=== PATIENT | male | born 1955 | race Caucasian/White ===

== ENCOUNTER → 2017-05-13 09:10 | Outpatient (CLI) | payer MEDICAID, SELFPAY ==
[2017-05-13 13:11] LABS: Hemoglobin A1c 7.3 % (4.2-6.3)
[2017-05-13 13:13] LABS: AST(SGOT) 30 U/L (15-37); Alanine Aminotransfer ALT/SGPT 59 U/L (16-61); Albumin, Serum 3.8 g/dL (3.2-5.0); Alkaline Phosphatase 53 U/L (45-117); Anion Gap 11 (5-15); BUN 17 mg/dL (7-18); BUN/Creat Ratio 20.6 RATIO (10-20); Bilirubin, Direct 0.11 mg/dL (0.00-0.30); Chloride 100 mmol/L (98-107); Cholesterol 162 mg/dL (200); Creatinine, Serum 0.83 mg/dL (0.70-1.30); EST Glomerular Filtration Rate 101 mL/min (>60); Est Glom Filt Rate - Afr Amer 122 mL/min (>60); Globulin 3.1 g/dL (2.2-4.2); Glucose 158 mg/dL (74-106); High Density Lipoprotein 32 mg/dL; Microalbumin,Random Urine 11.9 mg/L (NO RANGE EST.); Microalbumin:Creatinine Ratio 20.5 mg/g CRE (<30 mg/g CRE); Potassium 3.7 mmol/L (3.5-5.1); Protein, Total 6.9 g/dL (6.4-8.2); Sodium Level 137 mmol/L (136-145); Triglycerides 263 mg/dL; Very Low Density Lipoprotein 53 mg/dL (5-40)
== END ==
PROVIDERS: Family Provider Internal Medicine; PCP Internal Medicine; Visit Provider Nurse Practitioner Family
DX: I10 Essential (primary) hypertension (principal); E78.5 Hyperlipidemia, unspecified; E11.9 Type 2 diabetes mellitus without complications
CPT/HCPCS: 36415; 80048; 80061; 80076; 82043; 82570; 83036

== ENCOUNTER → 2017-09-09 09:45 | Outpatient (CLI) | payer MEDICAID, SELFPAY ==
--- NOTE | 2017-09-09 09:45 | DT_ITS ---
This patient was seen during an EMR downtime September 06, 2017 - September 13, 2017. This patient may have a combination of paper and electronic documentation or all paper documentation. All documentation is viewable within the e-chart portion of [facility] for each patient visit.
== END ==
PROVIDERS: Family Provider Internal Medicine; PCP Internal Medicine; Visit Provider Internal Medicine
DX: E11.9 Type 2 diabetes mellitus without complications (principal)
CPT/HCPCS: 83036

== ENCOUNTER → 2017-12-02 08:56 | Outpatient (CLI) | payer MEDICAID, SELFPAY ==
[2017-12-02 10:36] LABS: Hemoglobin A1c 7.1 % (4.2-6.3)
== END ==
PROVIDERS: Family Provider Internal Medicine; PCP Internal Medicine; Visit Provider Internal Medicine
DX: E11.9 Type 2 diabetes mellitus without complications (principal)
CPT/HCPCS: 36415; 83036

== ENCOUNTER → 2017-12-23 10:09 | Outpatient (CLI) | payer MEDICAID, SELFPAY ==
[2017-12-23 12:13] LABS: Anion Gap 10 (5-15); BUN 18 mg/dL (7-18); BUN/Creat Ratio 21.4 RATIO (10-20); Calcium,Total 9.4 mg/dL (8.5-10.1); Chloride 102 mmol/L (98-107); Creatinine, Serum 0.84 mg/dL (0.70-1.30); EST Glomerular Filtration Rate 99 mL/min (>60); Est Glom Filt Rate - Afr Amer 119 mL/min (>60); Glucose 187 mg/dL (74-106); Potassium 3.9 mmol/L (3.5-5.1); Sodium Level 141 mmol/L (136-145)
== END ==
PROVIDERS: Family Provider Internal Medicine; PCP Internal Medicine; Visit Provider Internal Medicine
DX: E11.9 Type 2 diabetes mellitus without complications (principal); I10 Essential (primary) hypertension
CPT/HCPCS: 36415; 80048

== ENCOUNTER 2018-01-03 06:52 | Day surgery (SDC) | payer MEDICAID, SELFPAY ==
[2018-01-03 07:15] VITALS: BP 131/70; PULSE 92; RESP 16; TEMP 36.8; O2SAT 96; BMI 46.3
[2018-01-03 07:31] LABS: Bedside Glucose 156 mg/dL (70-110)
--- NOTE | 2018-01-03 07:54 | HP.PCM_ITS ---
Past Medical/Surgical History - Planned Operation Planned Operative Procedure/s: cscope open access Date of Operative Procedure: 01/03/18 Permit Signed: No S.O.S: No Is This Patient Having a Total Joint: No - Previous Hospitalizations/Surgeries HX Hospitalizations: Yes - pneumonia 10 yrs Any Problems With Anesthesia: No You/Your Family Experience Fever (Hyperthermia) With Anes: No Cholinesterase deficiency: No - Cardiovascular Hx Chest Pain within Last 2 months: No Hx of Irregular Heartbeat and/or Afib: No Hx Heart Attack: No Hx Congestive Heart Failure: No Hx Rheumatic Fever: No Hx Hypertension: Yes - controlled with meds Hx Internal Defibrillator: No Hx Pacemaker: No Hx Cardiac Catheterization: No Hx Cardiac Surgery/Stents/Etc.: No Hx Stress Test: No HX Edema: Yes - compression stockings Hx Pain in Legs when Walking/Leg Cramps: No - Respiratory Chronic Cough: No HX of Shortness of Breath: Yes - sob with 2 flights of stairs Hoarseness: No Hx Chronic Obstructive Pulmonary Disease (COPD): No Hx Asthma: Yes - prn inhaler Hx Emphysema: No Hx Sleep Apnea: Yes CPAP: Yes BIPAP: No Hx Oxygen Use at Home: No Hx Respiratory Tract Infection/Cold (presently): No Result (for STOP score): Positive Hx Smoking: Yes - snuff at times Smoking Status: Current some day smoker - Gastrointestinal Hx Gastroesophageal Reflux: No Hx Gastrointestinal Disorders: No Hx Gastrointestinal Bleed: No Hx Ulcer: No Hx Hiatal Hernia: No Difficulty Chewing/Swallowing: No Recent Onset of Swallowing Problems: No Special diet followed at home: Yes - diabetic Hx Unplanned Weight Loss of 20#: No HX Unplanned Weight Gain of 20#: No - Neurological Hx Seizures: No HX Syncope/Blackout Spells/Unconsciousness: Yes - vertigo in the past d/t virus Hx CVA/Stroke: No Hx Transient Ischemic Attacks (TIA): No Hx Multiple Sclerosis: No Hx Parkinson's Disease: No Hx Head/Neck Injury: No Hx Headaches: No Hx Back Injury/Pain: Yes - back pain at times/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 Recent Onset of Speech Difficulty: No Restless Legs: No Does patient have nerve stimulator: No Patient instructed to have device shut off: No Rep notified?: No - Blood Disorder Hx Leukemia: No Bleeding Tendencies: No Hx Deep Vein Thrombosis: No Hx High Cholesterol: Yes - on med Blood Transmitted Disease: No Hx Hepatitis: No Hx Cirrhosis: No Hx Anemia: No Hx Blood Disorders: No - Genitourinary Hx Renal Disease: No - Musculoskeletal Hx Arthritis: No Hx Rheumatoid Arthritis: No Hx Gout: No Recent Onset of an Orthopedic Problem: No - Endocrine Hx Diabetes: Yes Insulin: No Thyroid Disease: No Hx Steroid Therapy: No - Psycho/Social Hx Substance Use: No Hx Alcohol Use: No Hx Anxiety: No Hx Depression: No Mental Illness: No Hx Dementia: No - Miscellaneous Hx Cancer: No Recent Exposure to Contagious Disease: No Active MRSA: No Hx of C-Diff: No Any Loose Teeth: No Allergies No Known Allergies Allergy (Unverified 12/29/17 15:00) - Discharge Is Pt Admitted From a Correction, or a Penitentiary: No Who Could Help: family After D/C, Where Do you Plan to Go: Return Home - Physical Exam General: Alert, Oriented x3, Cooperative, No apparent distress Lungs: Normal air movement Cardiovascular: Regular rate Abdomen: Soft, Non Tender, Non-Distended, Obese Extremities: No clubbing, No cyanosis, Edema - mild Neurological: Cranial nerves II-XII grossly intact Vital Signs Temp Pulse Resp BP Pulse Ox 98.3 F 92 16 131/70 H 96 01/03/18 07:15 01/03/18 07:15 01/03/18 07:15 01/03/18 07:15 01/03/18 07:15 Oxygen Delivery Method Room Air Weight: 309 lb 8.464 oz Body Mass Index (BMI) 46.3 POC Glucose 01/03/18 07:25 POC Glucose 156 H Assessment/Plan All Active Problems (Last Reviewed 07/26/17 @ 09:21 by Ira Cherry) Erectile dysfunction (Acute) Pneumonia (Acute) Screen colonoscopy, previous colonoscopy 10 years ago negative, denies family history Surgery Risks - Colonoscopy I discussed with the patient the risks of the procedure: Yes Risks Include but are not Limited To: Risks include but are not limited to: Bleeding, perforation requiring further surgery, inability to complete colonoscopy requiring barium enema.
[2018-01-03 08:15] VITALS: BP 124/66; BP 131/70; PULSE 87; RESP 18; O2SAT 93
[2018-01-03 08:18] VITALS: BP 124/66; BP 131/70; PULSE 91; RESP 18; TEMP 36.6; O2SAT 96
[2018-01-03 08:20] VITALS: BP 126/71; BP 131/70; PULSE 87; RESP 18; O2SAT 94
[2018-01-03 08:27] VITALS: BP 121/83; BP 131/70; PULSE 82; RESP 18; TEMP 37; O2SAT 95
--- NOTE | 2018-01-03 08:33 | OP.ENDO_ITS ---
Patient Name: Rj Lopez Procedure Date: 01/03/2018 7:52 AM Date of : 1955 Age: 62 Procedure: Colonoscopy Indications: Screening for colorectal malignant neoplasm Providers: Eboni Garcia MD Medicines: Monitored Anesthesia Care Patient Profile: Last Colonoscopy: 10 years ago. Complications: No immediate complications. Procedure: Pre-Anesthesia Assessment: - Prior to the procedure, a History and Physical was performed, and patient medications and allergies were reviewed. The patient's tolerance of previous anesthesia was also reviewed. The risks and benefits of the procedure and the sedation options and risks were discussed with the patient. All questions were answered, and informed consent was obtained. Prior Anticoagulants: The patient has taken no previous anticoagulant or antiplatelet agents. ASA Grade Assessment: III - A patient with severe systemic disease. After reviewing the risks and benefits, the patient was deemed in satisfactory condition to undergo the procedure. After I obtained informed consent, the scope was passed under direct vision. Throughout the procedure, the patient's blood pressure, pulse, and oxygen saturations were monitored continuously. The colonoscope was introduced through the anus and advanced to the cecum, identified by the appendiceal orifice, ileocecal valve and palpation. The colonoscopy was performed with ease. The patient tolerated the procedure well. The quality of the bowel preparation was good. Scope In: 8:00:46 AM Scope Withdrawal Time 0 hours 7 minutes 5 seconds Scope Out: 8:11:42 AM Total Procedure Duration Time 0 hours 10 minutes 56 seconds Findings: The entire examined colon appeared normal on direct and retroflexion views. Impression: - The entire examined colon is normal on direct and retroflexion views. - No specimens collected. Recommendation: - Discharge patient to home. - Continue present medications. - Repeat colonoscopy in 10 years for screening purposes. Procedure Code(s): --- Professional --- G0121, Colorectal cancer screening; colonoscopy on individual not meeting criteria for high risk Diagnosis Code(s): --- Professional --- Z12.11, Encounter for screening for malignant neoplasm of colon CPT copyright 2017 [employer]. All rights reserved. The codes documented in this report are preliminary and upon inpatient coder review may be revised to meet current compliance requirements. MD Eboni Diana MD 01/03/2018 8:32:35 AM This report has been signed electronically. Number of Addenda: 0 Note Initiated On: 01/03/2018 7:52 AM
[2018-01-03 08:48] VITALS: BP 131/70
== END 2018-01-03 09:09 | disposition home or self-care (01) ==
LOC: EN 06:53 → AC 06:54
PROVIDERS: Family Provider Internal Medicine; PCP Internal Medicine; Visit Provider Surgery
PROC: 0DJD8ZZ Inspection of Lower Intestinal Tract, Via Natural or Artificial Opening Endoscopic (ICD-10-PCS; CPT 45378; principal; 2018-01-03 07:55)
DX: Z12.11 Encounter for screening for malignant neoplasm of colon (principal); E11.9 Type 2 diabetes mellitus without complications; I10 Essential (primary) hypertension; E78.00 Pure hypercholesterolemia, unspecified; N52.9 Male erectile dysfunction, unspecified; J45.909 Unspecified asthma, uncomplicated; G47.30 Sleep apnea, unspecified; Z79.84 Long term (current) use of oral hypoglycemic drugs; Z79.899 Other long term (current) drug therapy; F17.200 Nicotine dependence, unspecified, uncomplicated; Z87.01 Personal history of pneumonia (recurrent)
CPT/HCPCS: 45378; 82962; J7120

== ENCOUNTER → 2018-03-18 10:13 | Outpatient (CLI) | payer MEDICAID, SELFPAY ==
[2018-03-18 14:09] LABS: Hemoglobin A1c 7.7 % (4.2-6.3)
[2018-03-18 14:22] LABS: ALB/GLOB Ratio 1.2 RATIO (0.9-2.4); AST(SGOT) 33 U/L (15-37); Alanine Aminotransfer ALT/SGPT 59 U/L (16-61); Albumin, Serum 3.7 g/dL (3.2-5.0); Alkaline Phosphatase 44 U/L (45-117); Anion Gap 11 (5-15); BUN 18 mg/dL (7-18); Calcium,Total 9.1 mg/dL (8.5-10.1); Chloride 102 mmol/L (98-107); Cholesterol 146 mg/dL (200); EST Glomerular Filtration Rate 92 mL/min (>60); Est Glom Filt Rate - Afr Amer 111 mL/min (>60); Globulin 3.2 g/dL (2.2-4.2); Glucose 139 mg/dL (74-106); High Density Lipoprotein 33 mg/dL; PSA,Total - Annual Screen 0.51 ng/mL (0.00-4.00); Protein, Total 6.9 g/dL (6.4-8.2); Sodium Level 139 mmol/L (136-145); Triglycerides 246 mg/dL; Very Low Density Lipoprotein 49 mg/dL (5-40)
--- OUTSIDE RECORDS SUMMARY | 2018-05-04 01:07 | XMS RPT_ITS ---
:1955 Author Organization OHIP Support Name Relationship Address Phone S Unavailable Unavailable Unavailable ZI MendesN Unavailable [address] + [place] [address] S Unavailable Unavailable Unavailable S Unavailable Unavailable Unavailable KAMINSKI, PARAMJIT Unavailable [address] + [place] [address] S Unavailable Unavailable Unavailable KAMINSKI, PARAMJIT Unavailable [address] + [place] [address] S Unavailable Unavailable Unavailable KAMINSKI, PARAMJIT Unavailable [address] + [place] [address] S Unavailable Unavailable Unavailable KAMINSKI, PARAMJIT Unavailable [address] + [place] [address] S Unavailable Unavailable Unavailable KAMINSKI, PARAMJIT Unavailable [address] + [place] [address] S Unavailable Unavailable Unavailable KAMINSKI, PARAMJIT Unavailable [address] + [place] [address] S Unavailable Unavailable Unavailable KAMINSKI, PARAMJIT Unavailable [address] + [place] [address] S Unavailable Unavailable Unavailable KAMINSKI, PARAMJIT Unavailable [address] + [place] [address] S Unavailable Unavailable Unavailable KAMINSKI, PARAMJIT Unavailable [address] + [place] [address] S Unavailable Unavailable Unavailable KAMINSKI, PARAMJIT Unavailable [address] + [place] [address] S Unavailable Unavailable Unavailable KAMINSKI, PARAMJIT Unavailable [address] + [place] [address] S Unavailable Unavailable Unavailable KAMINSKI, PARAMJIT Unavailable [address] + [place] [address] S Unavailable Unavailable Unavailable KAMINSKI, PARAMJIT Unavailable [address] [facility] + [place] [id number] Care Team Providers Name Role Phone Oleghe, Efewongbe Attending Unavailable Oleghe, Efewongbe Referring Unavailable Ira Cherry Attending Unavailable Owen Gutierrez EARLY CHILDHOOD LEAD TEACHER-C Attending Unavailable GutierrezOwen fitch EARLY CHILDHOOD LEAD TEACHER-C Referring Unavailable Oleghe, Efewongbe Primary Care Unavailable Ira Cherry Attending Unavailable Oleghe, Efewongbe Attending Unavailable Oleghe, Efewongbe Referring Unavailable Oleghe, Efewongbe Attending Unavailable Oleghe, Efewongbe Referring Unavailable Oleghe, Efewongbe Primary Care Unavailable Oleghe, Efewongbe Attending Unavailable Oleghe, Efewongbe Referring Unavailable Oleghe, Efewongbe Primary Care Unavailable Oleghe, Efewongbe Attending Unavailable Oleghe, Efewongbe Referring Unavailable Oleghe, Efewongbe Primary Care Unavailable Oleghe, Efewongbe Attending Unavailable Oleghe, Efewongbe Referring Unavailable Oleghe, Efewongbe Primary Care Unavailable Oleghe, Efewongbe Attending Unavailable Oleghe, Efewongbe Referring Unavailable Oleghe, Efewongbe Primary Care Unavailable Nurse, Standard Attending Unavailable Oleghe, Efewongbe Referring Unavailable Oleghe, Efewongbe Attending Unavailable Oleghe, Efewongbe Referring Unavailable Oleghe, Efewongbe Primary Care Unavailable Robotham, Eboni Attending Unavailable Robotham, Eboni Referring Unavailable Oleghe, Efewongbe Primary Care Unavailable Oleghe, Efewongbe Attending Unavailable Oleghe, Efewongbe Primary Care Unavailable Oleghe, Efewongbe Referring Unavailable Robotham, Eboni Attending Unavailable Robotham, Eboni Referring Unavailable Oleghe, Efewongbe Primary Care Unavailable Robotham, Eboni Consulting Unavailable PROBLEMS PROBLEMS DATE TYPE CONDITION / CODE ATTENDING STATUS SOURCE 03/21/2018 Unknown E11.9 - Type 2 Oleghe, Active [place] diabetes mellitus [facility] without Hospital complications / Repository E11.9(ICD-10) 03/21/2018 Unknown E78.5 - Oleghe, Active [place] Hyperlipidemia, [facility] unspecified / Hospital E78.5(ICD-10) Repository 12/23/2017 Unknown I10 - Essential Oleghe, Active [place] (primary) [facility] hypertension / Hospital I10(ICD-10) Repository 12/02/2017 Unknown Z00.00 - Encounter Olemono, Active [place] for general adult [facility] medical examination Hospital without abnormal Repository findings / Z00.00(ICD-10) 12/02/2017 Unknown Z12.11 - Encounter Olemono, Active [place] for screening for [facility] malignant neoplasm Hospital of colon / Repository Z12.11(ICD-10) 07/26/2017 Unknown I87.2 - Venous Oleghe, Active [place] insufficiency [facility] (chronic) [facility] (peripheral) / Repository I87.2(ICD-10) PROCEDURES PROCEDURES No Procedure Records FoundRESULTS RESULTS INTERNAL MEDICINE Observed: 03/25/2018 Status: F Source: [place] OFFICE VISIT 8:37 AM [facility] [place] REPOSITORY [facility] [address] [place] [address] [place] [address] OFFICE VISIT Date of Service: 03/21/18 MR#: [id number] Acct: [id number] Name: CASIE KAMINSKI Rep #: [id number] : 1955 Provider: Monica Johnson MD Age/Sex: 62/M Location: [facility] Status: Signed Intake Vital Signs03/21/18 Height 5 ft 8.5 in Intake Visit Reasons: 3 MO FU Chief Complaint: follow-up visit Is patient in pain?: No Allergies No Known Allergies Allergy (Unverified 12/29/17 15:00) Medications juice plus fiber 6 cap PO DAILY 04/15/17 [History Confirmed 01/03/18] fluticasone 110 mcg/actuation HFA aerosol inhaler 2 inh INHALATION BID #10.6 g 11/10/17 [Rx Confirmed 01/03/18] lisinopril 40 mg tablet 40 mg PO QDAY #90 tab 12/02/17 [Rx Confirmed 01/03/18] Dulaglutide [Trulicity] 1.5 mg SUBCUT CARRERA 12/29/17 [History Confirmed 01/03/18] Metformin HCl [Metformin HCl ER] 1,000 mg PO BID 12/29/17 [History Confirmed 01/03/18] [place]-3 Fatty Acids/Fish Oil [Fish Oil 1,000 mg Capsule] 1 ea PO DAILY 12/29/17 [History Confirmed 01/03/18] amlodipine 10 mg tablet 10 mg PO QDAY #30 tab 01/24/18 [Rx] nebivolol 5 mg tablet 5 mg PO QDAY #30 tab 01/28/18 [Rx] albuterol sulfate HFA 90 mcg/actuation aerosol inhaler 2 puff INHALATION Q8H PRN #8.5 g 02/09/18 [Rx] hydrochlorothiazide 25 mg tablet 25 mg PO QDAY #90 tab 03/21/18 [Rx Confirmed 03/21/18] icosapent ethyl 1 gram capsule 2 g PO BID #180 cap 03/21/18 [Rx Confirmed 03/21/18] rosuvastatin 20 mg tablet 20 mg PO DAILY #90 tab 03/21/18 [Rx Confirmed 03/21/18] PFSH Medical History Sleep apnea (Chronic) Pneumonia (Acute) Hypertension (Chronic) Hyperlipemia (Chronic) Asthma (Chronic) Family History Father Diabetes Mother Diabetes COPD (chronic obstructive pulmonary disease) Social History Smoking Status: Current some day smoker alcohol intake: never substance use type: does not use what type of physical activity do you participate in: none HPI HPI Chief Complaint: follow-up visit Details: CASIE KAMINSKI, is a 62 M who presents to the office today for follow up of his chronic medical conditions. He has no acute complaints at this time. Most recent A1C up from 7.1 to 7.7. He reports compliance with his medications however, admits to difficulty with his diet especially around the holiday season. There has also been some weight gain noted since his last visit. ROS Const Constitutional: No weight change, body ache, chills, fatigue, sleep problems, fever(s), change in appetite, snoring, weakness, frequent falls, headache(s) or excessive sweating Eyes Eyes: No change in vision, eye pain, light sensitivity or blurry vision ENT ENT: Positive for dry mouth (at night ); no headache(s), abnormal hearing, ear pain, tinnitus, nasal congestion, sore throat or neck pain Resp Respiratory: No snoring, cough, shortness of breath or wheezing Cardio Cardiology: No excessive sweating, chest pain at rest, chest pain with exertion, shortness of breath, dyspnea on exertion, palpitations, orthopnea or lightheadedness Gastro GI: No abdominal pain, change in bowel habits, constipation, diarrhea, vomiting, nausea/dyspepsia or cramping Genitourinary Male: No painful urination, urinary incontinence, urinary frequency, urinary urgency, blood in urine, testicle pain or other Musc Musculoskeletal: No neck pain, abnormal walking, joint pain, back pain, limited range of motion, numbness or tingling Skin Skin: No redness, dry skin, itching, lesions, wounds or rash Neuro Neurology: No weakness, frequent falls, headache(s), abnormal hearing, abnormal walking, numbness, tingling, abnormal speech or memory loss Psych Psychiatric: No change in appetite, No memory loss, No anxiety, No depression, No Thoughts of harming yourself/Others Endo Endocrine: No fatigue, excessive sweating, cold intolerance, increased thirst/drinking, heat intolerance, flushing or increased hunger Aller/Imm Allergy/Immunologic: No wheezing, itchy eyes, hives or seasonal allergy symptoms Jorge Luis/Lymp Hematologic/Lymphatic: No easy bleeding, easy bruising or enlarged lymph nodes Exam Const General: cooperative, no acute distress Orientation: alert, awake, oriented x3 [facility] Head: atraumatic, normocephalic Ears: hearing grossly normal bilaterally Resp Effort AND Inspection: normal respiratory effort, able to speak in complete sentences Auscultation: Bilateral: Clear to Auscultation Cardio Rate: regular rate Rhythm: regular rhythm Heart Sounds: S1 normal, S2 normal GI Palpation: soft, no hepatosplenomegaly Neuro General: alert, awake, oriented x3, moves all extremities, CN's II-XI intact bilaterally Extrem General: pedal edema bilaterally Location: of the leg Severity: 1+ Psych Appearance: grossly normal Mental Status: mental status grossly normal Affect: normal affect Assessment AND Plan 1. Type 2 diabetes mellitus E11.9 Plan Not optimally controlled. Weight gain also noted. He admits to poor dietary choices, largely due to nature of his job. Will refer to the [facility] program. Continue current medication and life style / dietary modifications. Follow up with blood sugar log at next visit. Orders Orders: Referrals: 2. Hypertension I10 Plan Stable. Continue current medication and life style/ dietary modifications. 3. Hyperlipemia E78.5 Plan LDL at goal however HDL is suboptimal. Triglycerides also not at goal. Switch to Crestor and add Vascepa. Life style/ dietary modifications as above. Orders Orders: Referrals: 4. Health care maintenance Z00.00 Plan Recent colonoscopy within normal. 10 year follow up recommended. PSA also within normal. Has received his flu shot. Referral to the [facility] weight program for obesity as above. Plan Detail Other Medications New: icosapent ethyl (Vascepa) administer with food2 grams (2 x 1 gram) PO BID 180 caps 3RF ; swallow whole; do not crush/chew/dissolve/break /cut Refilled: Discontinued: Coding Level of Care Code Off vis,est,level 4 Diagnoses Type 2 diabetes mellitus E11.9 Hypertension I10 Hyperlipemia E78.5 Health care maintenance Z00.00 03/25/18 0837 <Electronically signed by Monica Johnson MD> Date Monica Johnson MD Cosigner Signature: Date (if applicable) CC: HEMOGLOBIN A1C Collected: 03/18/2018 Status: F Source: [place] 10:21 AM [facility] REPOSITORY TYPE CODE TESTS RESULT OUT OF RANGE REFERENCE UNITS LAB L501.9985 4.2-6.3 % High HGB A1C 7.7 Performed By: #### L501.9985 #### [facility] [address] [place], [place], [address] COMPREHENSIVE METABOLIC Collected: 03/18/2018 Status: F Source: [place] [facility] 10:21 AM [facility] REPOSITORY TYPE CODE TESTS RESULT OUT OF RANGE REFERENCE UNITS LAB L501.0100 74-106 mg/dL High GLU 139 Result Comment: Fasting Glucose result greater than or equal to 126 mg/dL suggests DIABETES MELLITUS per A.D.A. criteria. Please note revised GLUCOSE reference range effective 2017. LAB L501.1000 7-18 mg/dL Normal BUN 18 LAB L501.1100 0.70-1.30 mg/dL Normal CREAT,SERUM 0.90 Result Comment: The validity of the calculated GFR AND GFRAA in patients over 70 years has not been determined. Clinical correlation is essential. LAB L501.1110 >60 mL/min Normal EST GFR 92 Result Comment: Non- GFR Calc LAB L501.1115 >60 mL/min Normal EST GFR - AA 111 Result Comment: GFR Calc LAB L501.1300 10-20 RATIO Normal BUN/CRE 20.0 LAB L501.1500 6.4-8.2 g/dL T Normal PROT 6.9 LAB L501.1800 3.2-5.0 g/dL Normal ALB 3.7 LAB L501.1950 2.2-4.2 g/dL Normal GLOB 3.2 LAB L501.2000 0.9-2.4 RATIO Normal A/G 1.2 LAB L501.2200 8.5-10.1 mg/dL CA Normal 9.1 LAB L501.4100 15-37 U/L Normal AST 33 LAB L501.4305 45-117 U/L Low ALK P 44 LAB L501.4405 16-61 U/L Normal ALT 59 LAB L501.4600 0.20-1.00 mg/dL T Normal BILI 0.60 LAB L501.5300 136-145 mmol/L NA Normal 139 LAB L501.5600 3.5-5.1 mmol/L K Normal 4.0 LAB L501.5900 98-107 mmol/L CL Normal 102 LAB L501.6100 21.0-32.0 mmol/L Normal CO2 26.0 LAB L501.6200 5-15 Normal GAP 11 Performed By: #### L500.4050, L500.4100, L501.9910 #### [facility] [address] [place], [address] LIPID PROFILE Collected: 03/18/2018 Status: F Source: [place] 10:21 AM [facility] REPOSITORY TYPE CODE TESTS RESULT OUT OF RANGE REFERENCE UNITS LAB L501.4900 200 mg/dL Normal CHOL 146 Result Comment: <200 mg/dL Desirable 200-240 mg/dL Borderline >240 mg/dL High Risk LAB L501.5000 mg/dL High TRIG 246 Result Comment: The drugs N-Acetylcysteine and Metamizole may falsely depress this assay. Serum Triglycerides Reference Interval Normal <150 mg/dL Borderline high 150 - 199 mg/dL High 200 - 499 mg/dL Very High > or = 500 mg/dL LAB L501.6400 mg/dL Low HDL 33 Result Comment: The drugs N-Acetylcysteine and Metamizole may falsely depress this assay. Reference Range HDL <40 mg/dL Low HDL Cholesterol HDL >or= 60 mg/dL High HDL Cholesterol LAB L501.6500 0-130 mg/dL Normal LDL 64 LAB L501.6600 5-40 mg/dL High VLDL 49 Performed By: #### L500.4050, L500.4100, L501.9910 #### [facility] [address] [place], [address] PSA,TOTAL - ANNUAL Collected: 03/18/2018 Status: F Source: [place] SCREEN 10:21 AM [facility] REPOSITORY TYPE CODE TESTS RESULT OUT OF RANGE REFERENCE UNITS LAB L501.9910 0.00-4.00 ng/mL Normal PSA,TOT 0.51 SCREEN Result Comment: This test was performed using the TPSA assay method for the [employer] chemistry system. Values obtained with different assay methods cannot be used interchangably. When changing PSA assays in the course of monitoring a patient, additional sequential testing should be carried out to confirm baseline values. Performed By: #### L500.4050, L500.4100, L501.9910 #### [facility] [address] [place], [address] OPERATIVE REPORT - Observed: 01/03/2018 Status: F Source: [place] ENDOSCOPY 8:33 AM [facility] REPOSITORY [facility] Medical Records Department [address] [place] [address] Operative Report - Endoscopy MR#: [id number] Acct: [id number] Name: CASIE KAMINSKI Hunter Rep #: [id number] : 1955 62 From: Eboni Garcia MD PCP: Monica Johnson MD [place] [facility] [place] Patient Name: Casie Kaminski Procedure Date: 01/03/2018 7:52 AM Date of : 1955 Age: 62 Procedure: Colonoscopy Indications: Screening for colorectal malignant neoplasm Providers: Eboni Garcia MD Medicines: Monitored Anesthesia Care Patient Profile: Last Colonoscopy: 10 years ago. Complications: No immediate complications. Procedure: Pre-Anesthesia Assessment: - Prior to the procedure, a History and Physical was performed, and patient medications and allergies were reviewed. The patient's tolerance of previous anesthesia was also reviewed. The risks and benefits of the procedure and the sedation options and risks were discussed with the patient. All questions were answered, and informed consent was obtained. Prior Anticoagulants: The patient has taken no previous anticoagulant or antiplatelet agents. ASA Grade Assessment: III - A patient with severe systemic disease. After reviewing the risks and benefits, the patient was deemed in satisfactory condition to undergo the procedure. After I obtained informed consent, the scope was passed under direct vision. Throughout the procedure, the patient's blood pressure, pulse, and oxygen saturations were monitored continuously. The colonoscope was introduced through the anus and advanced to the cecum, identified by the appendiceal orifice, ileocecal valve and palpation. The colonoscopy was performed with ease. The patient tolerated the procedure well. The quality of the bowel preparation was good. Scope In: 8:00:46 AM Scope Withdrawal Time 0 hours 7 minutes 5 seconds Scope Out: 8:11:42 AM Total Procedure Duration Time 0 hours 10 minutes 56 seconds Findings: The entire examined colon appeared normal on direct and retroflexion views. Impression: - The entire examined colon is normal on direct and retroflexion views. - No specimens collected. Recommendation: - Discharge patient to home. - Continue present medications. - Repeat colonoscopy in 10 years for screening purposes. Procedure Code(s): --- Professional --- G0121, Colorectal cancer screening; colonoscopy on individual not meeting criteria for high risk Diagnosis Code(s): --- Professional --- Z12.11, Encounter for screening for malignant neoplasm of colon CPT copyright 2017 [employer]. All rights reserved. The codes documented in this report are preliminary and upon solar sales representative and assessor review may be revised to meet current compliance requirements. MD Eboni Diana MD 01/03/2018 8:32:35 AM This report has been signed electronically. Number of Addenda: 0 Note Initiated On: 01/03/2018 7:52 AM 01/03/18 0832 Date Eboni Garcia MD Cosigner Signature: Date (if indicated) CC: Monica Johnson MD; Eboni Garcia MD Date Dictated: 01/03/18751 Date Transcribed: Food Vendor: TR Signed HISTORY AND PHYSICAL Observed: 01/03/2018 Status: F Source: [place] EXAM 7:54 AM [facility] REPOSITORY [facility] Medical Records Department [address] [place] [address] History and Physical 01/03/18751 MR#: [id number] Acct: [id number] Name: CASIE KAMINSKI Rep #: [id number] : 1955 62 From: Eboni Garcia MD PCP: Monica Johnson MD [place] [facility] [place] Location: [place] [address] Past Medical/Surgical History - Planned Operation Planned Operative Procedure/s: cscope open access Date of Operative Procedure: 01/03/18 Permit Signed: No S.O.S: No Is This Patient Having a Total Joint: No - Previous Hospitalizations/Surgeries HX Hospitalizations: Yes - pneumonia 10 yrs Any Problems With Anesthesia: No You/Your Family Experience Fever (Hyperthermia) With Anes: No Cholinesterase deficiency: No - Cardiovascular Hx Chest Pain within Last 2 months: No Hx of Irregular Heartbeat and/or Afib: No Hx Heart Attack: No Hx Congestive Heart Failure: No Hx Rheumatic Fever: No Hx Hypertension: Yes - controlled with meds Hx Internal Defibrillator: No Hx Pacemaker: No Hx Cardiac Catheterization: No Hx Cardiac Surgery/Stents/Etc.: No Hx Stress Test: No HX Edema: Yes - compression stockings Hx Pain in Legs when Walking/Leg Cramps: No - Respiratory Chronic Cough: No HX of Shortness of Breath: Yes - sob with 2 flights of stairs Hoarseness: No Hx Chronic Obstructive Pulmonary Disease (COPD): No Hx Asthma: Yes - prn inhaler Hx Emphysema: No Hx Sleep Apnea: Yes CPAP: Yes BIPAP: No Hx Oxygen Use at Home: No Hx Respiratory Tract Infection/Cold (presently): No Result (for STOP score): Positive Hx Smoking: Yes - snuff at times Smoking Status: Current some day smoker - Gastrointestinal Hx Gastroesophageal Reflux: No Hx Gastrointestinal Disorders: No Hx Gastrointestinal Bleed: No Hx Ulcer: No Hx Hiatal Hernia: No Difficulty Chewing/Swallowing: No Recent Onset of Swallowing Problems: No Special diet followed at home: Yes - diabetic Hx Unplanned Weight Loss of 20#: No HX Unplanned Weight Gain of 20#: No - Neurological Hx Seizures: No HX Syncope/Blackout Spells/Unconsciousness: Yes - vertigo in the past d/t virus Hx CVA/Stroke: No Hx Transient Ischemic Attacks (TIA): No Hx Multiple Sclerosis: No Hx Parkinson's Disease: No Hx Head/Neck Injury: No Hx Headaches: No Hx Back Injury/Pain: Yes - back pain at times/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 Recent Onset of Speech Difficulty: No Restless Legs: No Does patient have nerve stimulator: No Patient instructed to have device shut off: No Rep notified?: No - Blood Disorder Hx Leukemia: No Bleeding Tendencies: No Hx Deep Vein Thrombosis: No Hx High Cholesterol: Yes - on med Blood Transmitted Disease: No Hx Hepatitis: No Hx Cirrhosis: No Hx Anemia: No Hx Blood Disorders: No - Genitourinary Hx Renal Disease: No - Musculoskeletal Hx Arthritis: No Hx Rheumatoid Arthritis: No Hx Gout: No Recent Onset of an Orthopedic Problem: No - Endocrine Hx Diabetes: Yes Insulin: No Thyroid Disease: No Hx Steroid Therapy: No - Psycho/Social Hx Substance Use: No Hx Alcohol Use: No Hx Anxiety: No Hx Depression: No Mental Illness: No Hx Dementia: No - Miscellaneous Hx Cancer: No Recent Exposure to Contagious Disease: No Active MRSA: No Hx of C-Diff: No Any Loose Teeth: No Allergies No Known Allergies Allergy (Unverified 12/29/17 15:00) - Discharge Is Pt Admitted From a Senior Care, or a Senior Care: No Who Could Help: family After D/C, Where Do you Plan to Go: Return Home - Physical Exam General: Alert, Oriented x3, Cooperative, No apparent distress Lungs: Normal air movement Cardiovascular: Regular rate Abdomen: Soft, Non Tender, Non-Distended, Obese Extremities: No clubbing, No cyanosis, Edema - mild Neurological: Cranial nerves II-XII grossly intact Vital Signs Temp Pulse Resp BP Pulse Ox 98.3 F 92 16 131/70 H 96 01/03/18 07:15 01/03/18 07:15 01/03/18 07:15 01/03/18 07:15 01/03/18 07:15 Oxygen Delivery Method Room Air Weight: 309 lb 8.464 oz Body Mass Index (BMI) 46.3 POC Glucose POC Glucose 156 H Assessment/Plan All Active Problems (Last Reviewed 07/26/17 @ 09:21 by Ira Cherry) Erectile dysfunction (Acute) Pneumonia (Acute) Screen colonoscopy, previous colonoscopy 10 years ago negative, denies family history Surgery Risks - Colonoscopy I discussed with the patient the risks of the procedure: Yes Risks Include but are not Limited To: Risks include but are not limited to: Bleeding, perforation requiring further surgery, inability to complete colonoscopy requiring barium enema. 01/03/18 0754 <Electronically signed by Eboni Garcia MD> Date Eboni Garcia MD Cosigner Signature: Date (if applicable) CC: Monica Johnson MD; Eboni Garcia MD Signed BEDSIDE GLUCOSE Collected: 01/03/2018 Status: F Source: [place] 7:25 AM [facility] REPOSITORY TYPE CODE TESTS RESULT OUT OF REFERENCE UNITS RANGE LAB L501.080 70-110 mg/dL High BEDSIDE GLU 156 Result Comment: MANAGEMENT OF PATIENT CARE PER NURSING PROTOCOL Performed By: #### L501.080 #### [place] [facility] Point of Care [address] [place], [place] [address] [place] [id number] BASIC METABOLIC Collected: 12/23/2017 Status: F Source: [place] PROFILE (BMP) 10:12 AM [facility] REPOSITORY TYPE CODE TESTS RESULT OUT OF RANGE REFERENCE UNITS LAB L501.0100 74-106 mg/dL High GLU 187 Result Comment: Fasting Glucose result greater than or equal to 126 mg/dL suggests DIABETES MELLITUS per A.D.A. criteria. Please note revised GLUCOSE reference range effective 2017. LAB L501.1000 7-18 mg/dL Normal BUN 18 LAB L501.1100 0.70-1.30 mg/dL Normal CREAT,SERUM 0.84 Result Comment: The validity of the calculated GFR AND GFRAA in patients over 70 years has not been determined. Clinical correlation is essential. LAB L501.1110 >60 mL/min Normal EST GFR 99 Result Comment: Non- GFR Calc LAB L501.1115 >60 mL/min Normal EST GFR - AA 119 Result Comment: GFR Calc LAB L501.1300 10-20 RATIO High BUN/CRE 21.4 LAB L501.2200 8.5-10.1 mg/dL CA Normal 9.4 LAB L501.5300 136-145 mmol/L NA Normal 141 LAB L501.5600 3.5-5.1 mmol/L K Normal 3.9 LAB L501.5900 98-107 mmol/L CL Normal 102 LAB L501.6100 21.0-32.0 mmol/L Normal CO2 29.0 LAB L501.6200 5-15 Normal GAP 10 Performed By: #### L500.2500 #### [facility] [address] [place], [place], [address] INTERNAL MEDICINE Observed: 12/07/2017 Status: F Source: [place] OFFICE VISIT 3:37 PM [facility] REPOSITORY [facility] [address] [place] [address] [place] [address] OFFICE VISIT Date of Service: 12/02/17 MR#: [id number] Acct: [id number] Name: CASIE KAMINSKI Rep #: [id number] : 1955 Provider: Monica Johnson MD Age/Sex: 62/M Location: [facility] Status: Signed Intake Vital Signs12/02/17 Height 5 ft 9 in Intake Visit Reasons: 1 mo fu Chief Complaint: follow-up visit Is patient in pain?: No Allergies No Known Allergies Allergy (Unverified 04/15/17 09:38) Medications hydrochlorothiazide 25 mg tablet 25 mg PO QDAY #90 tab 04/15/17 [Rx Confirmed 04/15/17] juice plus fiber PO 04/15/17 [History Confirmed 04/15/17] medical compression stockings MISCELLANEOUS 04/15/17 [History Confirmed 04/15/17] omega-3 fatty acids-fish oil 300 mg-1,000 mg capsule 1 cap PO BID 04/15/17 [History Confirmed 04/15/17] pravastatin 20 mg tablet 20 mg PO QHS 04/15/17 [History Confirmed 04/15/17] dulaglutide 1.5 mg/0.5 mL subcutaneous pen injector 1.5 mg SC QWEEK #2 ml 05/14/17 [Rx] Compression Stockings (15 - 20 mmHg ) #4 ea 07/26/17 [Rx Confirmed 07/26/17] albuterol sulfate HFA 90 mcg/actuation aerosol inhaler 2 puff INHALATION Q8H PRN #8.5 g 09/02/17 [Rx] amlodipine 10 mg tablet 10 mg PO QDAY #30 tab 09/15/17 [Rx] nebivolol 5 mg tablet 5 mg PO QDAY #30 tab 09/20/17 [Rx] fluticasone 110 mcg/actuation HFA aerosol inhaler 2 inh INHALATION BID #10.6 g 11/10/17 [Rx] lisinopril 40 mg tablet 40 mg PO QDAY #90 tab 12/02/17 [Rx Confirmed 12/02/17] metformin 1,000 mg tablet 1,000 mg PO BID #180 tab 12/02/17 [Rx Confirmed 12/02/17] PFSH Medical History Sleep apnea (Chronic) Pneumonia (Acute) Hypertension (Chronic) Hyperlipemia (Chronic) Asthma (Chronic) Family History Father Diabetes Mother Diabetes COPD (chronic obstructive pulmonary disease) Social History Smoking Status: Never smoker alcohol intake: never substance use type: does not use what type of physical activity do you participate in: none HPI HPI Chief Complaint: follow-up visit Details: CASIE KAMINSKI, is a 62yo M who presents to the office today for follow-up of his chronic medical conditions. He has no acute complaints at this time. He reports compliance with his medications. He is now due for colonoscopy. ROS Const Constitutional: No weight change, body ache, chills, fatigue, sleep problems, fever(s), change in appetite, snoring, weakness, frequent falls, headache(s) or excessive sweating Eyes Eyes: No change in vision, eye pain, light sensitivity or blurry vision ENT ENT: No headache(s), abnormal hearing, ear pain, tinnitus, nasal congestion, sore throat or neck pain Resp Respiratory: No snoring, cough or wheezing Cardio Cardiology: No excessive sweating, chest pain at rest, chest pain with exertion, shortness of breath, dyspnea on exertion, palpitations, orthopnea or lightheadedness Gastro GI: No abdominal pain, change in bowel habits, constipation, diarrhea, vomiting, nausea/dyspepsia or cramping Genitourinary Male: No painful urination, urinary incontinence, urinary frequency, urinary urgency, blood in urine, testicle pain or other Musc Musculoskeletal: No neck pain, abnormal walking, joint pain, back pain, limited range of motion, numbness or tingling Skin Skin: No redness, dry skin, itching, lesions, wounds or rash Neuro Neurology: No weakness, frequent falls, headache(s), abnormal hearing, abnormal walking, numbness, tingling, abnormal speech, dizziness or memory loss Psych Psychiatric: No change in appetite, No memory loss, No anxiety, No depression, No Thoughts of harming yourself/Others Endo Endocrine: No fatigue, excessive sweating, cold intolerance, increased thirst/drinking, heat intolerance, flushing or increased hunger Aller/Imm Allergy/Immunologic: No wheezing, itchy eyes, hives or seasonal allergy symptoms Jorge Luis/Lymp Hematologic/Lymphatic: No easy bleeding, easy bruising or enlarged lymph nodes Exam Const General: cooperative, no acute distress Orientation: alert, awake, oriented x3 HENMT Head: atraumatic, normocephalic Ears: hearing grossly normal bilaterally Resp Effort AND Inspection: normal respiratory effort, able to speak in complete sentences Auscultation: Bilateral: Clear to Auscultation Cardio Rate: regular rate Rhythm: regular rhythm Heart Sounds: S1 normal, S2 normal GI Palpation: soft, no hepatosplenomegaly Neuro General: alert, awake, oriented x3, moves all extremities, CN's II-XI intact bilaterally Extrem General: pedal edema bilaterally Location: of the leg Severity: 2+ Psych Appearance: grossly normal Mental Status: mental status grossly normal Affect: normal affect Assessment AND Plan 1. Type 2 diabetes mellitus E11.9 Plan Stable however, not optimally controlled. Increase metformin to 1000 mg twice daily. Continue GLP-1. Continue lifestyle and dietary modifications. Repeat A1c and microalbumin in 3 months. Orders Orders: 2. Hypertension I10 Plan Still not optimally controlled however better than at last visit. Increase lisinopril to 40 mg daily. Lifestyle and dietary modifications also encouraged. BMP in 2 weeks. Orders Orders: 3. Venous insufficiency of both lower extremities I87.2 Plan Is only started using his compression stockings however he has not noted any worsening despite being on amlodipine. Encouraged to use compression stockings. Will monitor. 4. Hyperlipemia E78.5 Plan Stable. Continue current medication. Continue lifestyle and dietary modifications. Lipid profile ordered. Orders Orders: 5. Health care maintenance Z00.00 Plan Now due for screening colonoscopy, refer to general surgery. PSA ordered. This note was generated with Markkit dictation software. It may contain incorrect words, spelling, and punctuation that were not noted in checking the note before signing. Orders Orders: Plan Detail Other Orders Referrals: Other Medications New: Changed: Discontinued: Coding Level of Care Code Off vis,est,level 4 Diagnoses Type 2 diabetes mellitus E11.9 Hypertension I10 Venous insufficiency of both lower extremities I87.2 Hyperlipemia E78.5 Health care maintenance Z00.00 12/07/17 1537 <Electronically signed by Monica Johnson MD> Date Monica Johnson MD Cosigner Signature: Date (if applicable) CC: HEMOGLOBIN A1C Collected: 12/02/2017 Status: F Source: [place] 9:00 AM [facility] REPOSITORY TYPE CODE TESTS RESULT OUT OF RANGE REFERENCE UNITS LAB L501.9985 4.2-6.3 % High HGB A1C 7.1 Performed By: #### L501.9985 #### [facility] [address] [place], [address] DOWNTIME REPORT Observed: 09/23/2017 Status: F Source: [place] 12:22 PM [facility] REPOSITORY [facility] Medical Records Department [address] [place] [address] Downtime Report MR#: [id number] Acct: [id number] Name: CASIE KAMINSKI Rep #: [id number] : 1955 62 From: Yahir Huizar PCP: Monica Johnson MD Status: REG CLI This patient was seen during an EMR downtime September 06, 2017 - September 13, 2017. This patient may have a combination of paper and electronic documentation or all paper documentation. All documentation is viewable within the e-chart portion of [facility] for each patient visit. INTERNAL MEDICINE Observed: 07/30/2017 Status: F Source: [place] OFFICE VISIT 8:20 AM [facility] [address] [place] [address] [place] [address] OFFICE VISIT Date of Service: 07/26/17 MR#: [id number] Acct: [id number] Name: CASIE KAMINSKI Rep #: [id number] : 1955 Provider: Monica Johnson MD Age/Sex: 62/M Location: [facility] [place] Status: Signed Intake Vital Signs07/26/17 Height 5 ft 9 in Intake Visit Reasons: 3 mo fu Chief Complaint: 3 month FU Is patient in pain?: No Allergies No Known Allergies Allergy (Unverified 04/15/17 09:38) Medications hydrochlorothiazide 25 mg tablet 25 mg PO QDAY #90 tab 04/15/17 [Rx Confirmed 04/15/17] juice plus fiber PO 04/15/17 [History Confirmed 04/15/17] lisinopril 20 mg tablet 20 mg PO QDAY #90 tab 04/15/17 [Rx Confirmed 04/15/17] medical compression stockings MISCELLANEOUS 04/15/17 [History Confirmed 04/15/17] metformin 500 mg tablet 500 mg PO BID 04/15/17 [History Confirmed 04/15/17] mometasone 220 mcg (30 doses) breath activated powder inhaler 1 inh INHALATION QPM #1 ea 04/15/17 [Rx Confirmed 04/15/17] omega-3 fatty acids-fish oil 300 mg-1,000 mg capsule 1 cap PO BID 04/15/17 [History Confirmed 04/15/17] pravastatin 20 mg tablet 20 mg PO QHS 04/15/17 [History Confirmed 04/15/17] dulaglutide 1.5 mg/0.5 mL subcutaneous pen injector 1.5 mg SC QWEEK #2 ml 05/14/17 [Rx] albuterol sulfate HFA 90 mcg/actuation aerosol inhaler 2 puff INHALATION Q8H PRN #8.5 g 07/02/17 [Rx Confirmed 07/02/17] Compression Stockings (15 - 20 mmHg ) #4 ea 07/26/17 [Rx Confirmed 07/26/17] amlodipine 10 mg tablet 10 mg PO QDAY #30 tab 07/26/17 [Rx Confirmed 07/26/17] PFSH Medical History Sleep apnea (Chronic) Pneumonia (Acute) Hypertension (Chronic) Hyperlipemia (Chronic) Asthma (Chronic) Family History Father Diabetes Mother Diabetes COPD (chronic obstructive pulmonary disease) Social History Smoking Status: Never smoker alcohol intake: never substance use type: does not use what type of physical activity do you participate in: none HPI HPI Chief Complaint: 3 month FU Details: CASIE KAMINSKI, is a 62yo M who presents to the office today for follow-up. He has a past medical history of hypertension, diabetes mellitus type 2, chronic venous insufficiency and hyperlipidemia. He is concerned about erectile dysfunction which has been ongoing. Said to be mainly situational. He denies any other complaints at this time. Last A1c was 7.3. ROS Const Constitutional: No weight change, body ache, chills, fatigue, sleep problems, fever(s), change in appetite, snoring, weakness, frequent falls, headache(s) or excessive sweating Eyes Eyes: No change in vision, eye pain, light sensitivity or blurry vision ENT ENT: No headache(s), abnormal hearing, ear pain, tinnitus, nasal congestion, sore throat or neck pain Resp Respiratory: No snoring, cough, shortness of breath or wheezing Cardio Cardiology: No excessive sweating, chest pain at rest, chest pain with exertion, shortness of breath, dyspnea on exertion, palpitations, orthopnea or lightheadedness Gastro GI: No abdominal pain, change in bowel habits, constipation, diarrhea, vomiting, nausea/dyspepsia or cramping Genitourinary Male: No painful urination, urinary incontinence, urinary frequency, urinary urgency, blood in urine, testicle pain or other Musc Musculoskeletal: No neck pain, abnormal walking, joint pain, back pain, limited range of motion, numbness or tingling Skin Skin: No redness, dry skin, itching, lesions, wounds or rash Neuro Neurology: No weakness, frequent falls, headache(s), abnormal hearing, abnormal walking, numbness, tingling, abnormal speech, dizziness or memory loss Psych Psychiatric: No change in appetite, No memory loss, No depression, No Thoughts of harming yourself/Others Endo Endocrine: No fatigue, excessive sweating, cold intolerance, increased thirst/drinking, heat intolerance, flushing or increased hunger Aller/Imm Allergy/Immunologic: No wheezing, itchy eyes, hives or seasonal allergy symptoms Jorge Luis/Lymp Hematologic/Lymphatic: No easy bleeding, easy bruising or enlarged lymph nodes Exam Const General: cooperative, no acute distress Orientation: alert, awake, oriented x3 [facility] Head: atraumatic, normocephalic Ears: hearing grossly normal bilaterally Resp Effort AND Inspection: normal respiratory effort, able to speak in complete sentences Auscultation: Bilateral: Clear to Auscultation Cardio Rate: regular rate Rhythm: regular rhythm Heart Sounds: S1 normal, S2 normal GI Palpation: soft, no hepatosplenomegaly Neuro General: alert, awake, oriented x3, moves all extremities, CN's II-XI intact bilaterally Extrem General: pedal edema bilaterally Location: of the leg Severity: 2+ Psych Appearance: grossly normal Mental Status: mental status grossly normal Affect: normal affect Assessment AND Plan 1. Erectile dysfunction N52.9 Plan Most likely multifactorial. (Diabetes mellitus type 2 and medications.) Will start by tapering off atenolol. If indicated will switch to nebivolol. Patient needs a diuretic and so, will keep hydrochlorothiazide on. Optimal blood sugar control recommended. If no improvement with the above, will start pharmacologic therapy. 2. Hypertension I10 Plan Still not optimally controlled. Blood pressure is 156/81 mmHg. Will switch from nifedipine to amlodipine 10 mg daily. Follow-up in 2 weeks. If blood pressure significantly elevated from discontinuing atenolol, will adjust medications for that. Lifestyle modifications encouraged. 3. Type 2 diabetes mellitus E11.9 Plan Better controlled since starting Trulicity. Continue current management. Continue lifestyle modifications. A1c ordered. Will follow. Orders Orders: 4. Sleep apnea G47.30 Plan Stable. No concerns at this time. Continue CPAP use. 5. Venous insufficiency of both lower extremities I87.2 Plan Chronic. Possibly exacerbated by the nature of his job. Prescription for compression stockings given. Will start at 15-20 mmHg, if no significant improvement will increase to 20-30 mmHg. Other conservative measures also discussed. This note was generated with Markkit dictation software. It may contain incorrect words, spelling, and punctuation that were not noted in checking the note before signing. Medications New: Plan Detail Other Medications New: Discontinued: Follow Up 2 Weeks Coding Level of Care Code Off vis,est,level 4 Diagnoses Erectile dysfunction N52.9 Hypertension I10 Type 2 diabetes mellitus E11.9 Sleep apnea G47.30 Venous insufficiency of both lower extremities I87.2 07/30/17 0820 <Electronically signed by Monica Johnson MD> Date Monica Johnson MD Cosigner Signature: Date (if applicable) CC: HEMOGLOBIN A1C Collected: 05/13/2017 Status: F Source: [place] 9:16 AM [facility] REPOSITORY TYPE CODE TESTS RESULT OUT OF RANGE REFERENCE UNITS LAB L501.9985 4.2-6.3 % High HGB A1C 7.3 Performed By: #### L501.9985 #### [facility] [address] [place], [address] BASIC METABOLIC Collected: 05/13/2017 Status: F Source: [place] PROFILE (BMP) 9:16 AM [facility] REPOSITORY TYPE CODE TESTS RESULT OUT OF RANGE REFERENCE UNITS LAB L501.0100 74-106 mg/dL High GLU 158 Result Comment: Fasting Glucose result greater than or equal to 126 mg/dL suggests DIABETES MELLITUS per A.D.A. criteria. Please note revised GLUCOSE reference range effective 2017. LAB L501.1000 7-18 mg/dL Normal BUN 17 LAB L501.1100 0.70-1.30 mg/dL Normal CREAT,SERUM 0.83 Result Comment: The validity of the calculated GFR AND GFRAA in patients over 70 years has not been determined. Clinical correlation is essential. LAB L501.1110 >60 mL/min Normal EST GFR 101 Result Comment: Non- GFR Calc LAB L501.1115 >60 mL/min Normal EST GFR - AA 122 Result Comment: GFR Calc LAB L501.1300 10-20 RATIO High BUN/CRE 20.6 LAB L501.2200 8.5-10.1 mg/dL CA Normal 9.0 LAB L501.5300 136-145 mmol/L NA Normal 137 LAB L501.5600 3.5-5.1 mmol/L K Normal 3.7 LAB L501.5900 98-107 mmol/L CL Normal 100 LAB L501.6100 21.0-32.0 mmol/L Normal CO2 26.0 LAB L501.6200 5-15 Normal GAP 11 Performed By: #### L500.2500, L500.3400, L500.4100, L502.0250 #### [facility] [address] [place], [address] LIVER PROFILE Collected: 05/13/2017 Status: F Source: [place] 9:16 AM [facility] REPOSITORY TYPE CODE TESTS RESULT OUT OF RANGE REFERENCE UNITS LAB L501.1500 6.4-8.2 g/dL Normal T PROT 6.9 LAB L501.1800 3.2-5.0 g/dL Normal ALB 3.8 LAB L501.1950 2.2-4.2 g/dL Normal GLOB 3.1 LAB L501.4100 15-37 U/L Normal AST 30 LAB L501.4305 45-117 U/L Normal ALK P 53 LAB L501.4405 16-61 U/L Normal ALT 59 Result Comment: Please note revised ALT reference range effective 2017. LAB L501.4600 0.20-1.00 mg/dL Normal T BILI 0.50 LAB L501.4700 0.00-0.30 mg/dL Normal D BILI 0.11 Performed By: #### L500.2500, L500.3400, L500.4100, L502.0250 #### [facility] [address] [place], [place], [address] LIPID PROFILE Collected: 05/13/2017 Status: F Source: [place] 9:16 AM [facility] REPOSITORY TYPE CODE TESTS RESULT OUT OF RANGE REFERENCE UNITS LAB L501.4900 200 mg/dL Normal CHOL 162 Result Comment: <200 mg/dL Desirable 200-240 mg/dL Borderline >240 mg/dL High Risk LAB L501.5000 mg/dL High TRIG 263 Result Comment: The drugs N-Acetylcysteine and Metamizole may falsely depress this assay. Serum Triglycerides Reference Interval Normal <150 mg/dL Borderline high 150 - 199 mg/dL High 200 - 499 mg/dL Very High > or = 500 mg/dL LAB L501.6400 mg/dL Low HDL 32 Result Comment: The drugs N-Acetylcysteine and Metamizole may falsely depress this assay. Reference Range HDL <40 mg/dL Low HDL Cholesterol HDL >or= 60 mg/dL High HDL Cholesterol LAB L501.6500 0-130 mg/dL Normal LDL 77 LAB L501.6600 5-40 mg/dL High VLDL 53 Performed By: #### L500.2500, L500.3400, L500.4100, L502.0250 #### [facility] [address] [place], [place], [id number] MICROALB:CREAT Collected: 05/13/2017 Status: F Source: [place] RATIO,RANDOM UR 9:16 AM [facility] REPOSITORY TYPE CODE TESTS RESULT OUT OF RANGE REFERENCE UNITS LAB L501.1200 NO RANGE EST. mg/dL Normal UR CREAT 58.10 LAB L502.0500 NO RANGE EST. mg/L Normal 11.9 MICROALBUMIN ,UR LAB L502.0600 <30 mg/g CRE mg/g CRE Normal 20.5 MALB:CREAT Performed By: #### L500.2500, L500.3400, L500.4100, L502.0250 #### [facility] [address] [place], [address] ALLERGIES ALLERGIES DATE TYPE / CODE NAME / CODE REACTION SEVERITY SOURCE 12/29/2017 Drug No Known Unknown [facility] Allergy/4160 Allergies/F00 Hospital 84193(SNOMED 8671291(RXNOR Repository CT) M) ENCOUNTERS ENCOUNTERS ADMIT/DISCHARGE ACCOUNT ADMITTING ENCOUNTER LOCATION SOURCE NUMBER CLASS 04/04/2018 [id number] Ambulatory BMSBuilding:B [place] 6 [place] Repository 03/21/2018/ [id number] Ambulatory BMSBuilding:B [place] 8 5 [place].[facility] Repository 03/18/2018 [id number] Ambulatory [place] [address] [facility] 01/03/2018 [id number] Ambulatory BMSBuilding:B [place] 0 [place].[facility] Repository 01/03/2018/ [id number] Ambulatory [place] [address] [facility] ing:ENRoom: Repository AC10 12/23/2017 [id number] Ambulatory [place] 9 [facility] ing:MTLAB Repository 12/03/2017/ [id number] Ambulatory BMSBuilding:B [place] 8 5 [place].[facility] Repository 12/02/2017/ [id number] Ambulatory BMSBuilding:B [place] 8 1 [place].[facility] Repository 12/02/2017 [id number] Ambulatory [place] [address] [facility] ing:MTLAB Repository 09/10/2017/ [id number] Ambulatory BMSBuilding:B [place] 8 6 [place].[facility] Repository 09/09/2017 [id number] Ambulatory [place] [address] [facility] ing:MTLAB Repository 07/26/2017/ [id number] Ambulatory BMSBuilding:B [place] 8 9 [place].[facility] Repository 07/16/2017 [id number] Ambulatory BMSBuilding:B [place] 3 [place].[facility] Repository 07/02/2017 [id number] Ambulatory BMSBuilding:B [place] 1 [place] Repository 05/13/2017 [id number] Ambulatory [place] [address] [facility] ing:MTLAB Repository PAYERS PAYERS ENCOUNTER GUARANTOR PAYER SUBSCRIBER SOURCE 04/04/2018 CASIE Braga Primary CASIE Hunter [place] [id number] [place] Insurance:CARESOURCEP SHAWDOB: [facility] Number: [id number] Hospital [address]Ssa: [phone] [id number] Repository [phone] () Date:2018-04-04 [address]ATTN: [place] [address]LO: 04/04/2018 Secondary NOT GIVENUNK [place] Insurance:SELF PAY [facility] Number: Effective Repository Date:2018-04-04 03/21/2018 CASIE Braga Primary CASIE [place] [id number] [place] Insurance:CARESOURCEP SHAWDOB: [facility] Number: [id number] Hospital [address]Znz: [phone] [id number] Repository [phone] () Date:2017-12-02 [address]ATTN: [place] [address]FV: 03/21/2018 Secondary NOT GIVENUNK [place] Insurance:SELF PAY [facility] Number: Effective Repository Date:2018-03-03 03/18/2018 CASIE Braga Primary CASIE Hunter [place] [id number] [place] Insurance:CARESOURCEP SHAWDOB: [facility] Number: [id number] Hospital [address]Bvv: [phone] [id number] Repository [phone] (HP) Date:2017-12-23 [address]ATTN: [place] [address]KV: 03/18/2018 Secondary NOT GIVENUNK [place] Insurance:SELF PAY [facility] Number: Effective Repository Date:2017-12-23 01/03/2018 CASIE E Primary CASIE E [place] [id number] [place] Insurance:CARESOURCEP SHAWDOB: [facility] Number: [id number] [facility] [address]Nyf: [phone] [id number] Repository [phone] (HP) Date:2017-12-03 [address]ATTN: [place] [address]DI: 01/03/2018 Secondary NOT GIVENUNK [place] Insurance:SELF PAY [facility] Number: Effective Repository Date:2018-01-03 01/03/2018 CASIE E Primary CASIE E [place] [id number] [place] Insurance:CARESOURCEP SHAWDOB: [facility] Number: [id number] Hospital [address]Zkz: [phone] [id number] Repository [phone] () Date:2017-12-03 [address]ATTN: [place] [address]VW: 01/03/2018 Secondary NOT GIVENUNK [place] Insurance:SELF PAY [facility] Number: Effective Repository Date:2017-12-03 12/23/2017 CASIE E Primary CASIE E [place] [id number] [place] Insurance:CARESOURCEP [facility] Number: [id number] Hospital [address]Umn: [phone] [id number] Repository [phone] (HP) Date:2017-12-23 [address]ATTN: [place] [address]LO: 12/23/2017 Secondary NOT GIVENUNK [place] Insurance:SELF PAY [facility] Number: Effective Repository Date:2017-12-23 12/03/2017 CASIE E Primary CASIE E [place] [id number] [place] Insurance:CARESOURCEP SHAWDOB: [facility] Number: [id number] Hospital [address]Thp: [phone] [id number] Repository [phone] () Date:2017-12-03 [address]ATTN: [place] [address]DZ: 12/03/2017 Secondary NOT GIVENUNK [place] Insurance:SELF PAY [facility] Number: Effective Repository Date:2017-12-03 12/02/2017 CASIE E Primary CASIE Braga [place] [id number] [place] Insurance:CARESOURCEP SHAWDOB: [facility] Number: [id number] Hospital [address]Vry: [phone] [id number] Repository [phone] () Date:2017-09-18 [address]ATTN: [place] [address]JW: 12/02/2017 Secondary NOT GIVENUNK [place] Insurance:SELF PAY [facility] Number: Effective Repository Date:2017-09-27 12/02/2017 CASIE E Primary CASIE Braga [place] [id number] [place] Insurance:CARESOURCEP SHAWDOB: [facility] Number: [id number] Hospital [address]Oiw: [phone] [id number] Repository [phone] () Date:2017-09-09 [address]ATTN: [place] [address]UG: 12/02/2017 Secondary NOT GIVENUNK [place] Insurance:SELF PAY [facility] Number: Effective Repository Date:2017-11-29 09/10/2017 CASIE E Primary CASIE Braga [place] [id number] [place] Insurance:CARESOURCEP SHAWDOB: [facility] Number: [id number] Hospital [address]Fzw: [phone] [id number] Repository [phone] () Date:2017-07-26P [address]ATTN: [place] [address]EK: 09/10/2017 Secondary NOT GIVENUNK [place] [facility]:SELF [facility]Y [facility] Hospital Number: Effective Repository Date:2017-09-17 09/09/2017 CASIE E Primary CASIE Braga [place] [id number] LUCIA Insurance:CARESOURCEP SHAWDOB: [place] Number: [id number] [address]Kct: [phone] [id number] Repository [phone] (HP) Date:2017-09-09[address]ATTN: [place] [address]UD: 09/09/2017 Secondary NOT GIVENUNK [place] Insurance:SELF PAY [facility] Number: Effective Repository Date:2017-09-09 07/26/2017 CASIE E Primary CASIE Braga [place] [id number] LUCIA Insurance:CARESOURCEP SHAWDOB: [facility] Number: [id number] Hospital [address]Fkj: [phone] [id number] Repository [phone] () Date:2017-04-15 [address]ATTN: [place] [address]NE: 07/26/2017 Secondary NOT GIVENUNK [place] Insurance:SELF PAY [facility] Number: Effective Repository Date:2017-07-26 07/16/2017 CASIE E Primary CASIE Braga [place] [id number] LUCIA Insurance:MEDICAIDPol SHAWDOB: [place] Number: [id number] [address]Hrd: [phone] [id number] Repository [phone] () Date:2017-05-12 07/16/2017 Secondary NOT GIVENUNK [place] Insurance:SELF PAY [facility] Number: Effective Repository Date:2017-05-12 07/02/2017 CASIE E Primary CASIE E [place] [id number] LUCIA Insurance:CARESOURCEP SHAWDOB: [place] Number: [id number] Hospital [address]Vzl: [phone] [id number] Repository [phone] () Date:2017-07-02[address]ATTN: [place] [address]MB: 07/02/2017 Secondary NOT GIVENUNK [place] Insurance:SELF PAY [facility] Number: Effective Repository Date:2017-07-02 05/13/2017 CASIE Paiz [id number] [place] Insurance:CARESOURCEP SHAWDOB: [facility] Number: [id number] [address]Zgv: [phone] [id number] Repository [phone] () Date:2017-05-13[address]ATTN: [place] [address]YZ: 05/13/2017 Secondary NOT GIVENUNK [place] Insurance:SELF PAY [facility] Number: Effective Repository Date:2017-05-13
== END ==
PROVIDERS: Family Provider Internal Medicine; PCP Internal Medicine; Referring Provider Internal Medicine; Visit Provider Internal Medicine
DX: Z00.00 Encounter for general adult medical examination without abnormal findings (principal); E11.9 Type 2 diabetes mellitus without complications; I10 Essential (primary) hypertension; E78.5 Hyperlipidemia, unspecified
CPT/HCPCS: 36415; 80053; 80061; 83036; 84153; G0103

== ENCOUNTER → 2018-12-02 09:30 | Outpatient (CLI) | payer OTHER, SELFPAY ==
[2018-12-02 09:08] VITALS: BMI 47.0
[2018-12-02 12:54] LABS: ALB/GLOB Ratio 1.2 RATIO (0.9-2.4); AST(SGOT) 30 U/L (15-37); Alanine Aminotransfer ALT/SGPT 52 U/L (16-61); Albumin, Serum 3.7 g/dL (3.2-5.0); Alkaline Phosphatase 45 U/L (45-117); Anion Gap 9 (5-15); BUN 18 mg/dL (7-18); BUN/Creat Ratio 21.5 RATIO (10-20); Calcium,Total 9.2 mg/dL (8.5-10.1); Chloride 104 mmol/L (98-107); Cholesterol 167 mg/dL (200); Creatinine, Serum 0.84 mg/dL (0.70-1.30); EST Glomerular Filtration Rate 99 mL/min (>60); Est Glom Filt Rate - Afr Amer 120 mL/min (>60); Globulin 3.1 g/dL (2.2-4.2); Glucose 166 mg/dL (74-106); High Density Lipoprotein 34 mg/dL; Potassium 4.2 mmol/L (3.5-5.1); Protein, Total 6.8 g/dL (6.4-8.2); Sodium Level 140 mmol/L (136-145); Triglycerides 328 mg/dL; Very Low Density Lipoprotein 66 mg/dL (5-40)
[2018-12-02 13:00] LABS: Microalbumin,Random Urine 10.7 mg/L (NO RANGE EST.)
== END ==
PROVIDERS: Family Provider Internal Medicine; PCP Internal Medicine; Visit Provider Nurse Practitioner Family
DX: E11.9 Type 2 diabetes mellitus without complications (principal)
CPT/HCPCS: 36415; 80053; 80061; 82043; 82570

== ENCOUNTER → 2019-06-05 11:53 | Outpatient (CLI) | payer OTHER, SELFPAY ==
[2019-06-05 11:36] VITALS: BMI 47.0
[2019-06-05 15:53] LABS: Anion Gap 8 (5-15); BUN 21 mg/dL (7-18); BUN/Creat Ratio 24.1 RATIO (10-20); Calcium,Total 9.2 mg/dL (8.5-10.1); Chloride 102 mmol/L (98-107); Creatinine, Serum 0.87 mg/dL (0.70-1.30); EST Glomerular Filtration Rate 94 mL/min (>60); Est Glom Filt Rate - Afr Amer 114 mL/min (>60); Glucose 155 mg/dL (74-106); Sodium Level 136 mmol/L (136-145)
[2019-06-05 16:15] LABS: Microalbumin,Random Urine 54.9 mg/L (NO RANGE EST.); Microalbumin:Creatinine Ratio 67.4 mg/g CRE (<30 mg/g CRE)
== END ==
PROVIDERS: PCP Internal Medicine; Referring Provider Internal Medicine; Visit Provider Internal Medicine
DX: E11.9 Type 2 diabetes mellitus without complications (principal); I10 Essential (primary) hypertension
CPT/HCPCS: 36415; 80048; 82043; 82570

== ENCOUNTER → 2020-05-16 13:39 | Outpatient (CLI) | payer OTHER, SELFPAY ==
[2020-05-16 13:02] VITALS: BMI 46.7
[2020-05-16 15:06] LABS: Absolute Lymphocyte Count 1.94 X10^3/uL (0.83-4.51); Absolute Neutrophil Count 4.3 X10^3/uL (2.0-7.7); Basophil# 0.05 X10^3/uL; Basophil% 0.7 % (0-1); Eosinophil# 0.13 X10^3/uL; Eosinophils% 1.8 % (0-5); Hematocrit 45.3 % (40-54); Hemoglobin 14.6 g/dL (13.0-16.5); Lymphocyte # 1.94 X10^3/ul (4.0); Lymphocyte % 27.5 % (19-41); Mean Corp Hgb Conc 32.2 g/dL (32-36); Mean Corpuscular Hgb 29.7 pg (27.0-32.0); Mean Corpuscular Volume 92.3 fL (80-94); Mean Platelet Vol. 10.8 fl (6.2-12.0); Monocyte# 0.67 X10^3/uL; Monocyte% 9.5 % (0-10); NRBC Flagged by Analyzer 0 % (0-5); Neutrophil # 4.25 X10^3/uL (2.7-7.7); Neutrophil % 60.4 % (47-70); Platelet Count 278 K/mm3 (150-450); RBC Distribution Width CV 11.9 % (11.6-14.6); RBC Distribution Width SD 40.6 fl (35.1-43.9); Red Blood Count 4.91 M/mm3 (4.6-6.2); White Blood Count 7.1 K/mm3 (4.4-11.0)
[2020-05-16 15:26] LABS: ALB/GLOB Ratio 1.1 RATIO (0.9-2.4); AST(SGOT) 22 U/L (15-37); Alanine Aminotransfer ALT/SGPT 55 U/L (16-61); Albumin, Serum 3.7 g/dL (3.2-5.0); Alkaline Phosphatase 49 U/L (45-117); Anion Gap 5 (5-15); BUN 21 mg/dL (7-18); BUN/Creat Ratio 21.9 RATIO (10-20); Calcium,Total 9.4 mg/dL (8.5-10.1); Chloride 102 mmol/L (98-107); Cholesterol 186 mg/dL (200); Creatinine, Serum 0.96 mg/dL (0.70-1.30); EST Glomerular Filtration Rate 84 mL/min (>60); Est Glom Filt Rate - Afr Amer 102 mL/min (>60); Globulin 3.3 g/dL (2.2-4.2); Glucose 148 mg/dL (74-106); High Density Lipoprotein 35 mg/dL; Sodium Level 137 mmol/L (136-145); Triglycerides 385 mg/dL; Very Low Density Lipoprotein 77 mg/dL (5-40)
[2020-05-16 15:28] LABS: Microalbumin,Random Urine 39.1 mg/L (NO RANGE EST.); Microalbumin:Creatinine Ratio 33.1 mg/g CRE (<30 mg/g CRE)
== END ==
LOC: BIMLAB 13:40
PROVIDERS: PCP Internal Medicine; Referring Provider Internal Medicine; Visit Provider Internal Medicine
DX: E11.9 Type 2 diabetes mellitus without complications (principal); I10 Essential (primary) hypertension; E78.5 Hyperlipidemia, unspecified
CPT/HCPCS: 36415; 80053; 80061; 82043; 82570; 85025

== ENCOUNTER 2020-11-17 21:43 | Emergency (ER) | payer OTHER, SELFPAY ==
[2020-05-16 13:02] VITALS: BMI 46.7
[2020-11-17 21:44] VITALS: BP 164/69; PULSE 99; RESP 18; TEMP 36.6; O2SAT 97; BMI 46.5
--- NOTE | 2020-11-17 22:47 | RAD_ITS ---
STUDY: X-RAY CHEST REASON FOR EXAM: Male, 65 years old. chest pain TECHNIQUE: Single AP portable view of the chest. COMPARISON: None. FINDINGS: No focal infiltrates or effusions. No pneumothorax. Normal size heart. Normal mediastinum and dioni. Normal visualized pulmonary arteries. Normal visualized aortic arch and descending thoracic aorta. Normal visualized thoracic spine. Normal visualized ribs, clavicles, and shoulders. There is no demonstrated abnormality of the visualized soft tissue structures of the upper abdomen. RAD/Chest 1 View (Portable) IMPRESSION: Normal x-ray examination of the chest. Electronically Signed: Paul Chan MD at 23:19 EDT , Service support ,
--- NOTE | 2020-11-17 22:47 | EKG12_ITS ---
Test Reason : ASTHMA Blood Pressure : / mmHG Vent. Rate : 091 BPM Atrial Rate : 091 BPM P-R Int : 178 ms QRS Dur : 094 ms QT Int : 344 ms P-R-T Axes : 075 071 041 degrees QTc Int : 423 ms Normal sinus rhythm with sinus arrhythmia Normal ECG Confirmed by JAYA VARGHESE, DAISHA ([id number]), editor publications EPIFANIO SMITH ([id number]) on 11/20/2020 1:37:46 PM Referred By: KACEY Confirmed By:DAISHA LAKE MD
--- NOTE | 2020-11-17 22:49 | EDS_ITS ---
HPI History of Present Illness Chief Complaint: Asthma Narrative Narrative: 65-year-old male presenting with chest wall pain. He states he localizes it to the upper sternum. He denies any trauma. He states he has a history of asthma but does not feel like he is wheezing or short of breath. Patient has not had lightheadedness or dizziness. He states he only has pain there with deep inspiration. When he holds his chin to his chest he has relief of his pain. There is no palpable pain to the chest wall. Patient has been otherwise healthy and denies fever, chills, body aches, change in taste or smell. Denies cardiac history. Patient does have history of diabetes, hypertension, asthma, hyperlipidemia, sleep apnea. [facility] Medical History Asthma Diabetes Hyperlipemia Hypertension Pneumonia Sleep apnea Home Medications juice plus fiber 6 cap PO DAILY 04/15/17 [History Last Taken Unknown] omega-3 fatty acids-fish oil 1 ea PO DAILY 12/29/17 [History Last Taken 12/29/17] cpap supplies #1 ea 01/04/19 [Rx Last Taken Unknown] amlodipine 10 mg tablet 10 mg PO QDAY #90 tab 01/01/20 [Rx Last Taken Unknown] lisinopril 40 mg tablet 40 mg PO QDAY #90 tab 01/01/20 [Rx Last Taken Unknown] metformin 1,000 mg tablet 1,000 mg PO BID #180 tab 01/01/20 [Rx Last Taken Unknown] pravastatin 40 mg tablet 40 mg PO DAILY #90 tab 01/01/20 [Rx Last Taken Unknown] hydrochlorothiazide 25 mg tablet 25 mg PO QDAY #90 tab 05/08/20 [Rx Last Taken Unknown] atenolol 50 mg tablet 50 mg PO DAILY #90 tab 05/16/20 [Rx Last Taken Unknown] fenofibrate 54 mg tablet 54 mg PO DAILY #90 tab 05/16/20 [Rx Last Taken Unknown] pioglitazone 30 mg tablet 30 mg PO DAILY #90 tab 05/16/20 [Rx Last Taken Unknown] sitagliptin 100 mg tablet 100 mg PO DAILY #90 tab 06/11/20 [Rx Last Taken Unknown] albuterol sulfate 90 mcg/actuation aerosol inhaler 2 puff INHALATION Q8H PRN #8.5 g 08/06/20 [Rx Last Taken Unknown] budesonide 90 mcg/actuation breath activated powder inhaler 2 inh INHALATION BID #1 ea 09/09/20 [Rx Last Taken Unknown] Allergy/AdvReac Type Severity Reaction Status Date / Time No Known Allergies Allergy Verified 11/17/20 21:47 Family History Father Diabetes Mother Diabetes COPD (chronic obstructive pulmonary disease) Social History Smoking Status: Never smoker alcohol intake: never substance use type: does not use what type of physical activity do you participate in: none ROS ROS ED Constitutional Constitutional ED: Denies chills or fever(s) Eyes Eyes: Denies blurry vision or diplopia ENT ENT ED: Denies rhinorrhea or sore throat Cardiovascular Cardiovascular: Reports chest pain; Denies orthopnea, palpitations or racing heartbeat Respiratory/Chest Respiratory/Chest: Denies cough, dyspnea, dyspnea on exertion or orthopnea Gastrointestinal Gastrointestinal: Denies abdominal pain, diarrhea, nausea or vomiting Genitourinary Genitourinary ED: Denies dysuria or hematuria Musculoskeletal Musculoskeletal: Denies arthralgias or neck pain Integumentary Denies Abrasions or rash Neurologic Neurologic: Denies headache(s) or paresthesias EXAM Physical Exam Const Vital Signs: 11/17/20 21:44 11/17/20 22:03 11/17/20 22:56 Temperature 97.9 F Temperature Source Temporal Pulse Rate 99 Respiratory Rate 18 Respiratory Effort Normal Respiratory Depth Normal Respiratory Pattern Normal Blood Pressure 164/69 H Blood Pressure Mean 100 Pulse Ox 97 Oxygen Delivery Method Room Air Room Air 11/18/20 00:49 Temperature Temperature Source Pulse Rate 90 Respiratory Rate 27 H Respiratory Effort Respiratory Depth Respiratory Pattern Blood Pressure 106/88 H Blood Pressure Mean 94 Pulse Ox 94 Oxygen Delivery Method Room Air Positive obese General Appearance ED: NAD Nutritional Appearance: obese HEENT Reports moist mucous membranes Negative for trauma Eyes PERRL and EOMs intact bilaterally Neck no lymphadenopathy and supple Chest Wall inspection of chest normal and palpation of chest normal Resp normal respiratory effort and clear to auscultation bilaterally Auscultation: Negative for rales or rhonchi Cardio regular rate and regular rhythm Extremity normal to inspection Neuro oriented x3 and CN's II-XII intact bilaterally Sensorium / Orientation: alert Psych mental status grossly normal Skin no rashes or lesions noted and no wounds MDM MDM MDM Narrative Medical decision making narrative: Patient presenting with chest pain on deep inspiration. He has no history of DVT/PE. He has no pain at rest. He has no exertional dyspnea, lightheadedness, dizziness, nausea, vomiting. Patient states that when he puts his chin to his chest that relieves his symptoms. EKG performed on arrival shows a sinus rhythm with a ventricular rate of 91 bpm without signs of ST elevation or depression on my interpretation. Chest x-ray on my interpretation shows no acute cardiopulmonary process and the radiologist does agree. CBC shows slight leukocytosis at 11.9, hemoglobin 13.9, hematocrit 40.6, platelets 254. BMP is unremarkable. High-sensitivity troponin is 8.2. Given this is been most of the day he has had this pain with deep inspiration with a normal EKG and negative troponin I do not believe he needs a delta troponin. D-dimer was elevated at 0.83 and he did have a CTA of his chest which on the radiologist interpretation shows no acute dissection or pulmonary emboli. There are no other acute findings on his CTA. Given these negative findings I believe patient is stable for discharge home. He is given return precautions. Impression: 1. Chest pain Lab Data Labs: Laboratory Results - last 24 hr 11/17/20 11/17/20 11/17/20 22:50 22:50 22:50 WBC 11.9 H RBC 4.59 L Hgb 13.9 Hct 42.6 MCV 92.8 MCH 30.3 MCHC 32.6 RDW Std Deviation 41.4 RDW Coeff of Ira 12.1 Plt Count 254 MPV 10.2 Immature Gran % (Auto) 0.400 Neut % (Auto) 74.1 H Lymph % (Auto) 12.4 L [place] % (Auto) 12.5 H Eos % (Auto) 0.4 Baso % (Auto) 0.2 Absolute Neuts (auto) 8.8 H Absolute Lymphs (auto) 1.48 Nucleated RBC % 0 D-Dimer Quant (PE/DVT) 0.83 H* Sodium 136 Potassium 3.9 Chloride 101 Carbon Dioxide 28.0 Anion Gap 7 BUN 18 Creatinine 0.91 Estim Creat Clear Calc 83.09 Est GFR (MDRD) Af Amer 108 Est GFR (MDRD) Non-Af 89 BUN/Creatinine Ratio 19.7 Glucose 146 H Calcium 9.4 Troponin I High Sens 8.2 Radiography Diagnostic Testing: Radiology Impression Chest X-Ray 11/17/20 22:47 IMPRESSION: Normal x-ray examination of the chest. Electronically Signed: Paul Chan MD at 23:19 EDT , Service support , Chest CTA 11/18/20 00:11 IMPRESSION: No pulmonary embolus or thoracic aortic dissection. Coronary artery calcifications. Electronically Signed: Paul Chan MD at 1:07 EDT , Service support , Discharge Plan Triage Chief Complaint: Asthma ED Provider: Mati Bradley Dx/Rx/DC Orders Instructions: ED Chest Pain, Noncardiac, ED Chest Wall Pain, Costochondritis Prescriptions: No Action juice plus fiber 6 cap PO DAILY RF: 0 pioglitazone 30 mg tablet 30 mg PO DAILY Qty: 90 RF: 3 atenolol 50 mg tablet 50 mg PO DAILY Qty: 90 RF: 1 omega-3 fatty acids-fish oil 1 EACH capsule 1 ea PO DAILY RF: 0 (DME) cpap supplies Qty: 1 RF: 0 amlodipine 10 mg tablet 10 mg PO QDAY Qty: 90 RF: 3 lisinopril 40 mg tablet 40 mg PO QDAY Qty: 90 RF: 3 pravastatin 40 mg tablet 40 mg PO DAILY Qty: 90 RF: 3 metformin 1,000 mg tablet 1,000 mg PO BID Qty: 180 RF: 3 hydrochlorothiazide 25 mg tablet 25 mg PO QDAY Qty: 90 RF: 3 fenofibrate 54 mg tablet 54 mg PO DAILY Qty: 90 RF: 1 sitagliptin 100 mg tablet 100 mg PO DAILY Qty: 90 RF: 3 Ventolin HFA 90 mcg/actuation HFA aerosol inhaler 2 puff INHALATION Q8H PRN (Reason: shortness of breath or wheezing) Qty: 8.5 RF: 4 Pulmicort Flexhaler 90 mcg/actuation aerosol powdr breath activated 2 inh INHALATION BID Qty: 1 RF: 1 Primary Care Provider: Monica Johnson Referrals: Monica Johnson MD [Primary Care Provider] - Disposition Disposition: Home, Self Care
[2020-11-17 23:06] LABS: Absolute Lymphocyte Count 1.48 X10^3/uL (0.83-4.51); Absolute Neutrophil Count 8.8 X10^3/uL (2.0-7.7); Basophil# 0.02 X10^3/uL; Basophil% 0.2 % (0-1); Eosinophil# 0.05 X10^3/uL; Eosinophils% 0.4 % (0-5); Hematocrit 42.6 % (40-54); Hemoglobin 13.9 g/dL (13.0-16.5); Lymphocyte # 1.48 X10^3/ul (0.83-4.51); Lymphocyte % 12.4 % (19-41); Mean Corp Hgb Conc 32.6 g/dL (32-36); Mean Corpuscular Hgb 30.3 pg (27.0-32.0); Mean Corpuscular Volume 92.8 fL (80-94); Mean Platelet Vol. 10.2 fl (6.2-12.0); Monocyte# 1.49 X10^3/uL; Monocyte% 12.5 % (0-10); NRBC Flagged by Analyzer 0 % (0-5); Neutrophil # 8.84 X10^3/uL (2.7-7.7); Neutrophil % 74.1 % (47-70); Platelet Count 254 K/mm3 (150-450); RBC Distribution Width CV 12.1 % (11.6-14.6); RBC Distribution Width SD 41.4 fl (35.1-43.9); Red Blood Count 4.59 M/mm3 (4.6-6.2); White Blood Count 11.9 K/mm3 (4.4-11.0)
[2020-11-17 23:20] LABS: Anion Gap 7 (5-15); BUN 18 mg/dL (7-18); BUN/Creat Ratio 19.7 RATIO (10-20); Calcium,Total 9.4 mg/dL (8.5-10.1); Chloride 101 mmol/L (98-107); Creatinine, Serum 0.91 mg/dL (0.70-1.30); EST Glomerular Filtration Rate 89 mL/min (>60); Est Glom Filt Rate - Afr Amer 108 mL/min (>60); Estimated Creatinine Clearance 83.09 ml/min; Glucose 146 mg/dL (74-106); Potassium 3.9 mmol/L (3.5-5.1); Sodium Level 136 mmol/L (136-145); Troponin-I HS 8.2 pg/mL (3.0-78.5)
[2020-11-17 23:30] LABS: D-Dimer Quantitative (DVT/PE) 0.83 FEU/ug/m (0.27-0.49)
--- NOTE | 2020-11-18 00:11 | CT_ITS ---
STUDY: CTA CHEST REASON FOR EXAM: Male, 65 years old. chest pain RADIATION DOSAGE (If Supplied By Facility): CTDIvol = ( 29.28 ) mGy, DLP = ( 617.43 ) mGycm TECHNIQUE: The examination was performed with the intravenous administration of IV 100mL Isovue-370. Post-processing of the angiographic images was performed, with multiplanar reformation and maximum intensity projections.. Individualized dose optimization techniques were used for this CT. COMPARISON: Chest x-ray November 17, 2020. FINDINGS: Normal enhancement of the main pulmonary artery and right and left pulmonary arteries. Normal enhancement of the bilateral peripheral pulmonary arteries. There is no demonstrated pulmonary embolism. Normal thoracic aorta and visualized great vessels. There is no demonstrated aortic dissection. The heart is not enlarged. Coronary artery calcifications. No pericardial effusion. Normal mediastinum. Normal hilar regions. Normal visualized trachea and bronchi. The lungs are well expanded. No focal infiltrates or effusions. No pneumothorax. Normal pleura. Normal chest wall structures. Degenerative changes of the thoracic spine. There is probably hepatic steatosis. CT/CTA Chest W/WO Contrast IMPRESSION: No pulmonary embolus or thoracic aortic dissection. Coronary artery calcifications. Electronically Signed: Paul Chan MD at 1:07 EDT , Service support ,
[2020-11-18 00:49] VITALS: BP 106/88; PULSE 90; RESP 27; O2SAT 94
== END 2020-11-18 01:21 | disposition home or self-care (01) ==
PROVIDERS: Emergency Provider Student in an Organized Health Care Education/Training Program; PCP Internal Medicine
DX: R07.89 Other chest pain (principal); J45.909 Unspecified asthma, uncomplicated; I25.10 Atherosclerotic heart disease of native coronary artery without angina pectoris; E66.9 Obesity, unspecified; E11.9 Type 2 diabetes mellitus without complications; E78.5 Hyperlipidemia, unspecified; I10 Essential (primary) hypertension; G47.30 Sleep apnea, unspecified
CPT/HCPCS: 71045; 71275; 80048; 84484; 85025; 85379; 93005; 99284; Q9967; A4216

== ENCOUNTER 2021-05-04 14:16 | Emergency (ER) | payer OTHER, SELFPAY ==
[2021-05-04] VITALS (7 sets, daily range): BP systolic 140–202; BP diastolic 74–78; PULSE 86–104; RESP 16–18; TEMP 38.1–38.2; O2SAT 92–93; BMI 45.9
--- NOTE | 2021-05-04 14:46 | RAD_ITS ---
STUDY: X-RAY CHEST REASON FOR EXAM: Male, 65 years old. cough fever sob TECHNIQUE: 1 view COMPARISON: 11/17/2020 FINDINGS: Cardiomediastinal silhouette is unremarkable. Costophrenic angles are sharp. Small patchy opacities scattered in the bilateral lungs. The trachea is midline. There is no pneumothorax. The bones are grossly intact. RAD/Chest 1 View (Portable) IMPRESSION: Small patchy opacities scattered in the bilateral lungs, likely due to multifocal pneumonia in the appropriate clinical setting. Follow-up chest x-ray to resolution recommended. Electronically Signed: Gustavo Polo MD at 15:29 EST ,
--- NOTE | 2021-05-04 14:47 | EDS_ITS ---
HPI History of Present Illness Chief Complaint: Shortness of Breath Informant: patient Onset/Context/Timing Onset: Days (2) Context: gradual Timing: Intermittent Quality: Positive for Dyspnea on exertion Current Severity: Moderate Maximum Severity: Moderate Worsened by: Exertion Relieved by: Rest Associated Symptoms cough, fever and chills Chest Pain: Positive for None Narrative Narrative: Patient currently on day #11 of respiratory illness that has made him feel short of breath within the last several days. Has had some fevers, chills, malaise, no vomiting or diarrhea or myalgias or headaches. No chest pain or abdominal pain. He has history of asthma but does not feel like this is his asthma flaring up. Unvaccinated against Covid despite having diabetes and asthma and also sleep apnea, hypertension, hyperlipidemia. Has never had Covid that he knows of. Went to urgent care today but they sent him here because they were suspicious I had Covid. They did not test him. Patient states they were walking around in the hallways and he went down to 88% on room air. [facility] Medical History Asthma Costochondritis Diabetes Hyperlipemia Hypertension Pneumonia Sleep apnea Type 2 diabetes mellitus Home Medications juice plus fiber 6 cap PO DAILY 04/15/17 [History Last Taken Unknown] omega-3 fatty acids-fish oil 1 ea PO DAILY 12/29/17 [History Last Taken 12/29/17] cpap supplies #1 ea 01/04/19 [Rx Last Taken Unknown] pioglitazone 30 mg tablet 30 mg PO DAILY #90 tab 05/16/20 [Rx Last Taken Unknown] atenolol 50 mg tablet 50 mg PO DAILY #90 tab 11/26/20 [Rx Last Taken Unknown] albuterol sulfate 90 mcg/actuation aerosol inhaler 2 puff INHALATION Q8H PRN #8.5 g 01/17/21 [Rx Last Taken Unknown] amlodipine 10 mg tablet 10 mg PO QDAY #90 tab 01/17/21 [Rx Last Taken Unknown] fenofibrate 54 mg tablet 54 mg PO DAILY #90 tab 01/17/21 [Rx Last Taken Unknown] lisinopril 40 mg tablet 40 mg PO QDAY #90 tab 01/17/21 [Rx Last Taken Unknown] metformin 1,000 mg tablet 1,000 mg PO BID #180 tab 01/17/21 [Rx Last Taken Unknown] pravastatin 40 mg tablet 40 mg PO DAILY #90 tab 01/17/21 [Rx Last Taken Unknown] budesonide 90 mcg/actuation breath activated powder inhaler 2 inh INHALATION BID #1 ea 03/21/21 [Rx Last Taken Unknown] sitagliptin 100 mg tablet 100 mg PO DAILY #90 tab 04/08/21 [Rx Last Taken Unknown] hydrochlorothiazide 25 mg tablet 25 mg PO QDAY #90 tab 04/28/21 [Rx Last Taken Unknown] azithromycin 250 mg PO DAILY #4 tablet 05/04/21 [Rx Last Taken Unknown] prednisone 20 mg PO DAILY 6 Days #6 tablet 05/04/21 [Rx Last Taken Unknown] Allergy/AdvReac Type Severity Reaction Status Date / Time No Known Allergies Allergy Verified 05/04/21 14:17 Family History Father Diabetes Mother Diabetes COPD (chronic obstructive pulmonary disease) Social History Smoking Status: Never smoker alcohol intake: never substance use type: does not use what type of physical activity do you participate in: none ROS ROS ED Constitutional Constitutional ED: Reports chills, fever(s) and malaise; Denies body ache(s) or headache(s) Eyes Eyes: Denies change in vision or diplopia ENT ENT ED: Denies rhinorrhea or sore throat Cardiovascular Cardiovascular: Denies chest pain or palpitations Respiratory/Chest Respiratory/Chest: Reports cough and dyspnea on exertion; Denies excessive phlegm production or hemoptysis Gastrointestinal Gastrointestinal: Denies abdominal pain, diarrhea, nausea or vomiting Genitourinary Genitourinary ED: Denies dysuria or hematuria Musculoskeletal Musculoskeletal: Denies back pain or neck pain Integumentary Denies abscess or rash Neurologic Neurologic: Denies headache(s), paresthesias or weakness Psychiatric Psychiatric: Denies anxiety or suicidal thoughts EXAM Physical Exam Const Vital Signs: 05/04/21 14:17 05/04/21 14:55 05/04/21 14:58 Temperature 100.8 F H 100.6 F H Temperature Source Temporal Temporal Pulse Rate 104 H Respiratory Rate 18 Respiratory Effort Normal Respiratory Depth Normal Respiratory Pattern Normal Blood Pressure 202/74 H Blood Pressure Mean 116 Pulse Ox 93 Oxygen Delivery Method Room Air Room Air 05/04/21 15:44 05/04/21 17:36 Temperature 100.6 F H Temperature Source Oral Pulse Rate 86 Respiratory Rate 18 Respiratory Effort Respiratory Depth Respiratory Pattern Blood Pressure Blood Pressure Mean Pulse Ox 93 Oxygen Delivery Method Room Air Positive well nourished and well developed Constitutional Narrative: Well-appearing, no distress General Appearance ED: well developed and NAD Nutritional Appearance: morbidly obese HEENT Reports moist mucous membranes normocephalic and atraumatic Eyes PERRL and EOMs intact bilaterally Neck full ROM and supple Resp normal respiratory effort and clear to auscultation bilaterally Cardio regular rate, regular rhythm and no murmurs Cardio Narrative: mildly tachycardic Rate: tachycardic GI non-tender and non-distended Auscultation: normoactive bowel sounds Palpation: soft Back/Spine no CVA tenderness General Back: other FROM Extremity normal to inspection and no calf tenderness General Extremety ED: Negative for edema, pulses abnormal or tenderness General Extremity: Negative for edema or pulses abnormal Neuro oriented x3, CN's II-XII intact bilaterally and no sensory deficits noted Sensorium / Orientation: awake and alert Motor Exam: strength 5/5 throughout Skin no rashes or lesions noted and no wounds MDM MDM MDM Narrative Medical decision making narrative: We ambulated the patient here, his pulse ox went down to 88% at the lowest. He was a little short of breath, it was with a relatively light exertion. No chest discomfort. His rapid Covid is negative. His chest x-ray shows patchy bilateral opacities consistent with Covid especially with his lungs sounding clear. My suspicion is that he has Covid and that this is a false negative, which could easily be the case with him having symptoms longer than 1 week and/or with the current omicron surge which has a higher likelihood of false negative rapid antigen testing. In order to prevent admission and get him home on oxygen he needs a positive Covid test, so PCR was sent in addition to obtaining some basic labs, and he was monitored for a while in the ER until these resulted. All that came back unremarkable and his Covid PCR returned negative. As I discussed with the patient certainly is possible this is a false negative as well, however I think it would be reasonable to treat him with antibiotics and steroids, this would cover his bases against most bacterial causes of the radiographic appearance which would more likely be atypical in etiology, as well as Covid, we discussed admission versus discharge. He does not want to stay in the hospital and wants to go home. His pulse ox is 90% or above while resting on room air. He did go down to 88 briefly with exertion. We discussed checking his pulse oximetry at home, in order to make sure that if he goes down beyond 90% and remains there at rest, that he knows it and at this point should return to the hospital. He does live with his son who can help him. He understands to use his symptoms as a guide and not push through severe dyspnea if he exerts himself and gets dyspneic. Discussed follow-up and reasons to return, will send him home on prednisone and azithromycin. Lab Data Attestation: I reviewed the patient's lab results. Labs: Laboratory Results - last 24 hr 05/04/21 05/04/21 05/04/21 16:13 16:15 16:15 WBC 8.0 RBC 4.32 L Hgb 13.1 Hct 39.1 L MCV 90.5 MCH 30.3 MCHC 33.5 RDW Std Deviation 38.5 RDW Coeff of Ira 11.7 Plt Count 282 MPV 10.0 Immature Gran % (Auto) 0.500 Neut % (Auto) 81.5 H Lymph % (Auto) 9.1 L [place] % (Auto) 8.5 Eos % (Auto) 0.1 Baso % (Auto) 0.3 Absolute Neuts (auto) 6.5 Absolute Lymphs (auto) 0.73 L Nucleated RBC % 0 Sodium 134 L Potassium 3.4 L Chloride 99 Carbon Dioxide 30.0 Anion Gap 5 BUN 20 H Creatinine 0.85 Estim Creat Clear Calc 88.95 Est GFR (MDRD) Af Amer 117 Est GFR (MDRD) Non-Af 96 BUN/Creatinine Ratio 23.5 H Glucose 179 H Calcium 8.8 COVID-19 (HUSEYIN) Not Detected Radiography Diagnostic Testing: Clinical Impression(s) from Imaging Studies Chest X-Ray 05/04/21 14:46 IMPRESSION: Small patchy opacities scattered in the bilateral lungs, likely due to multifocal pneumonia in the appropriate clinical setting. Follow-up chest x-ray to resolution recommended. Electronically Signed: Gustavo Polo MD at 15:29 EST , Discharge Plan Triage Chief Complaint: Shortness of Breath ED Provider: Sam Butt Dx/Rx/DC Orders Clinical Impression: Pneumonia, Asthma Instructions: ED Pneumonia (Adult) Prescriptions: New azithromycin [azithromycin] 250 MG tablet 250 mg PO DAILY Qty: 4 RF: 0 prednisone 20 MG tablet 20 mg PO DAILY 6 Days Qty: 6 RF: 0 No Action juice plus fiber 6 cap PO DAILY RF: 0 pioglitazone 30 mg tablet 30 mg PO DAILY Qty: 90 RF: 3 atenolol 50 mg tablet 50 mg PO DAILY Qty: 90 RF: 3 sitagliptin 100 mg tablet 100 mg PO DAILY Qty: 90 RF: 3 omega-3 fatty acids-fish oil 1 EACH capsule 1 ea PO DAILY RF: 0 (DME) cpap supplies Qty: 1 RF: 0 Ventolin HFA 90 mcg/actuation HFA aerosol inhaler 2 puff INHALATION Q8H PRN (Reason: shortness of breath or wheezing) Qty: 8.5 RF: 4 amlodipine 10 mg tablet 10 mg PO QDAY Qty: 90 RF: 3 fenofibrate 54 mg tablet 54 mg PO DAILY Qty: 90 RF: 3 lisinopril 40 mg tablet 40 mg PO QDAY Qty: 90 RF: 3 metformin 1,000 mg tablet 1,000 mg PO BID Qty: 180 RF: 3 pravastatin 40 mg tablet 40 mg PO DAILY Qty: 90 RF: 3 Pulmicort Flexhaler 90 mcg/actuation aerosol powdr breath activated 2 inh INHALATION BID Qty: 1 RF: 1 hydrochlorothiazide 25 mg tablet 25 mg PO QDAY Qty: 90 RF: 3 Primary Care Provider: Monica Johnson Referrals: Monica Johnson MD [Primary Care Provider] - 3-5 Days Activity Restrictions/Additional Instructions: Try to get a home portable pulse oximeter and closely watch your oxygen levels periodically. If you stay below 90% for more than a minute or so, and/or you are feeling like your breathing is getting worse, return to the emergency department for further evaluation. Disposition Disposition: Home, Self Care
[2021-05-04] MEDS: Acetaminophen 500 MG Tablet 1000 MG PO (14:54)
[2021-05-04 16:26] LABS: Absolute Lymphocyte Count 0.73 X10^3/uL (0.83-4.51); Absolute Neutrophil Count 6.5 X10^3/uL (2.0-7.7); Basophil# 0.02 X10^3/uL; Basophil% 0.3 % (0-1); Eosinophil# 0.01 X10^3/uL; Eosinophils% 0.1 % (0-5); Hematocrit 39.1 % (40-54); Hemoglobin 13.1 g/dL (13.0-16.5); Lymphocyte # 0.73 X10^3/ul (0.83-4.51); Lymphocyte % 9.1 % (19-41); Mean Corp Hgb Conc 33.5 g/dL (32-36); Mean Corpuscular Hgb 30.3 pg (27.0-32.0); Mean Corpuscular Volume 90.5 fL (80-94); Monocyte# 0.68 X10^3/uL; Monocyte% 8.5 % (0-10); NRBC Flagged by Analyzer 0 % (0-5); Neutrophil # 6.51 X10^3/uL (2.7-7.7); Neutrophil % 81.5 % (47-70); Platelet Count 282 K/mm3 (150-450); RBC Distribution Width CV 11.7 % (11.6-14.6); RBC Distribution Width SD 38.5 fl (35.1-43.9); Red Blood Count 4.32 M/mm3 (4.6-6.2)
[2021-05-04 16:54] LABS: Anion Gap 5 (5-15); BUN 20 mg/dL (7-18); BUN/Creat Ratio 23.5 RATIO (10-20); Calcium,Total 8.8 mg/dL (8.5-10.1); Chloride 99 mmol/L (98-107); Creatinine, Serum 0.85 mg/dL (0.70-1.30); EST Glomerular Filtration Rate 96 mL/min (>60); Est Glom Filt Rate - Afr Amer 117 mL/min (>60); Estimated Creatinine Clearance 88.95 ml/min; Glucose 179 mg/dL (74-106); Potassium 3.4 mmol/L (3.5-5.1); Sodium Level 134 mmol/L (136-145)
[2021-05-04] MEDS: MethylPREDNISolone 125 MG/2 ML Vial IV (19:02)
[2021-05-04] MEDS: Azithromycin 250 MG Tablet 500 MG PO (19:02)
== END 2021-05-04 19:04 | disposition home or self-care (01) ==
PROVIDERS: Emergency Provider Emergency Medicine; PCP Internal Medicine; Visit Provider Emergency Medicine
DX: J18.9 Pneumonia, unspecified organism (principal); E11.9 Type 2 diabetes mellitus without complications; Z20.822 Contact with and (suspected) exposure to COVID-19; J45.909 Unspecified asthma, uncomplicated; I10 Essential (primary) hypertension; G47.30 Sleep apnea, unspecified; E78.5 Hyperlipidemia, unspecified; Z79.84 Long term (current) use of oral hypoglycemic drugs; Z79.899 Other long term (current) drug therapy
CPT/HCPCS: 71045; 80048; 85025; 87426; 87635; 87804; 96374; 99284; A4216; U0003; U0005

== ENCOUNTER → 2022-04-22 | Outpatient (CLI) | payer OTHER, SELFPAY ==
[2022-04-22 12:46] LABS: Absolute Neutrophil Count 3.5 X10^3/uL (2.0-7.7); Basophil# 0.06 X10^3/uL; Eosinophil# 0.24 X10^3/uL; Eosinophils% 3.9 % (0-5); Hematocrit 43.2 % (40-54); Hemoglobin 13.9 g/dL (13.0-16.5); Lymphocyte % 27.6 % (19-41); Mean Corp Hgb Conc 32.2 g/dL (32-36); Mean Corpuscular Hgb 30.3 pg (27.0-32.0); Mean Corpuscular Volume 94.1 fL (80-94); Mean Platelet Vol. 10.6 fl (6.2-12.0); Monocyte# 0.62 X10^3/uL; Monocyte% 10.1 % (0-10); NRBC Flagged by Analyzer 0 % (0-5); Neutrophil # 3.51 X10^3/uL (2.7-7.7); Neutrophil % 56.9 % (47-70); Platelet Count 310 K/mm3 (150-450); RBC Distribution Width CV 11.9 % (11.6-14.6); RBC Distribution Width SD 41.5 fl (35.1-43.9); Red Blood Count 4.59 M/mm3 (4.6-6.2); White Blood Count 6.2 K/mm3 (4.4-11.0)
[2022-04-22 13:13] LABS: Microalbumin,Random Urine 33.3 mg/L (NO RANGE EST.); Microalbumin:Creatinine Ratio 37.2 mg/g CRE (<30 mg/g CRE)
[2022-04-22 13:37] LABS: ALB/GLOB Ratio 1.1 RATIO (0.9-2.4); AST(SGOT) 22 U/L (15-37); Alanine Aminotransfer ALT/SGPT 43 U/L (16-61); Albumin, Serum 3.7 g/dL (3.2-5.0); Alkaline Phosphatase 40 U/L (45-117); Anion Gap 8 (5-15); BUN 24 mg/dL (7-18); Calcium,Total 9.4 mg/dL (8.5-10.1); Chloride 103 mmol/L (98-107); Cholesterol 179 mg/dL (200); EST Glomerular Filtration Rate 80 mL/min (>60); Est Glom Filt Rate - Afr Amer 97 mL/min (>60); Globulin 3.5 g/dL (2.2-4.2); Glucose 187 mg/dL (74-106); High Density Lipoprotein 34 mg/dL; PSA,Total - Annual Screen 0.67 ng/mL (0.00-4.00); Potassium 4.6 mmol/L (3.5-5.1); Protein, Total 7.2 g/dL (6.4-8.2); Sodium Level 138 mmol/L (136-145); Thyroid Stim Hormone (TSH) 0.97 uIU/mL (0.358-3.74); Triglycerides 246 mg/dL; Very Low Density Lipoprotein 49 mg/dL (5-40)
== END | disposition home or self-care (01) ==
LOC: BIMLAB 09:22
PROVIDERS: PCP Internal Medicine; Referring Provider Nurse Practitioner Family; Visit Provider Nurse Practitioner Family
DX: I10 Essential (primary) hypertension (principal); E11.9 Type 2 diabetes mellitus without complications; E78.5 Hyperlipidemia, unspecified; Z12.5 Encounter for screening for malignant neoplasm of prostate
CPT/HCPCS: 36415; 80053; 80061; 82043; 82570; 84153; 84443; 85025; G0103

== ENCOUNTER 2023-05-27 15:46 | Emergency (ER) | payer MEDICARE, OTHER, SELFPAY ==
[2023-05-27 15:47] VITALS: BP 165/86; PULSE 98; RESP 18; TEMP 36.7; O2SAT 97; BMI 47.4
--- NOTE | 2023-05-27 16:05 | EKG12_ITS ---
Test Reason : DIZZINESS Blood Pressure : / mmHG Vent. Rate : 102 BPM Atrial Rate : 102 BPM P-R Int : 196 ms QRS Dur : 084 ms QT Int : 326 ms P-R-T Axes : 057 064 055 degrees QTc Int : 424 ms Poor data quality, interpretation may be adversely affected Sinus tachycardia Anteroseptal infarct , age undetermined Abnormal ECG No previous ECGs available Confirmed by JAYA VARGHESE, DAISHA ([id number]), supervising film or videotape editor EPIFANIO SMITH ([id number]) on 05/31/2023 1:10:06 PM Referred By: Confirmed By:DAISHA LAKE MD
--- NOTE | 2023-05-27 16:19 | EX.ED.DYSGE1 ---
HPI <SANNA Teran - Last Filed: 05/27/23 16:54> History of Present Illness Chief Complaint: Dizziness Narrative Narrative: Patient presenting today due to an episode of dizziness that occurred this afternoon. He reports that he was pulling on a gasoline line on his car and turned his head to the right when he began to feel dizzy like he was rocking on a boat. He reports that he then tried to walk but felt off balance. His symptoms lasted approximately 2 minutes and then went away. He reports that he then felt off for about an hour but was no longer dizzy. He does admit to a history of vertigo in the past. PMH includes hypertension, hyperlipidemia, type 2 diabetes mellitus, asthma, and MARAL. He denies any history of stroke. PFSH <SANNA Teran - Last Filed: 05/27/23 16:54> [facility] Medical History Asthma Costochondritis Diabetes Hyperlipemia Hypertension Pneumonia Sleep apnea Type 2 diabetes mellitus Home Medications juice plus fiber 6 cap PO DAILY 04/15/17 [History Last Taken Unknown] omega-3 fatty acids-fish oil 340 mg-1,000 mg capsule 1 ea PO DAILY 12/29/17 [History Last Taken 12/29/17] cpap supplies #1 ea 01/04/19 [Rx Last Taken Unknown] atenolol 50 mg tablet 50 mg PO DAILY #90 tabs 04/22/22 [Rx Last Taken Unknown] budesonide 180 mcg/actuation breath activated powder inhaler 1 inh inhalation BID #1 ea 04/22/22 [Rx Last Taken Unknown] fenofibrate 54 mg tablet 54 mg PO DAILY #90 tabs 04/22/22 [Rx Last Taken Unknown] hydrochlorothiazide 25 mg tablet 25 mg PO QDAY #90 tabs 04/22/22 [Rx Last Taken Unknown] lisinopril 40 mg tablet 40 mg PO QDAY #90 tabs 04/22/22 [Rx Last Taken Unknown] metformin 1,000 mg tablet 1,000 mg PO BID #180 tabs 04/22/22 [Rx Last Taken Unknown] pravastatin 40 mg tablet 40 mg PO DAILY #90 tabs 04/22/22 [Rx Last Taken Unknown] fluticasone propionate 220 mcg/actuation HFA aerosol inhaler (Flovent HFA) 2 puff inhalation BID #12 grams 04/29/22 [Rx Last Taken Unknown] linagliptin 5 mg tablet (Tradjenta) 5 mg PO QAM #90 tabs 05/06/22 [Rx Last Taken Unknown] pioglitazone 30 mg tablet 30 mg PO DAILY #90 tabs 06/30/22 [Rx Last Taken Unknown] amlodipine 10 mg tablet 10 mg PO QDAY #90 tabs 08/20/22 [Rx Last Taken Unknown] albuterol sulfate 90 mcg/actuation aerosol inhaler See Rx Instructions .Route .COMPLEX #8 grams 12/02/22 [Rx Last Taken Unknown] Allergy/AdvReac Type Severity Reaction Status Date / Time No Known Allergies Allergy Verified 05/27/23 15:46 Family History Father Diabetes Mother Diabetes COPD (chronic obstructive pulmonary disease) Social History Smoking Status: Never smoker alcohol intake: never substance use type: does not use what type of physical activity do you participate in: none ROS <SANNA Teran - Last Filed: 05/27/23 16:54> ROS ED Constitutional Constitutional ED: Denies chills or fever(s) Eyes Eyes: Denies change in vision Cardiovascular Cardiovascular: Denies chest pain or palpitations Respiratory/Chest Respiratory/Chest: Denies cough or dyspnea Gastrointestinal Gastrointestinal: Denies abdominal pain, nausea or vomiting Musculoskeletal Musculoskeletal: Denies arthralgias or myalgias Integumentary Denies rash Neurologic Neurologic: Reports dizziness; Denies confusion, headache(s), paresthesias or weakness EXAM <SANNA Teran - Last Filed: 05/27/23 16:54> Physical Exam Const Vital Signs: 05/27/23 15:47 05/27/23 15:58 05/27/23 16:55 Temperature 98.1 F 97.3 F L Temperature Source Temporal Pulse Rate 98 94 Respiratory Rate 18 16 Respiratory Effort Normal Non-Labored Respiratory Pattern Normal Blood Pressure 165/86 H 148/71 H Blood Pressure Mean 112 96 Pulse Ox 97 99 Oxygen Delivery Method Room Air Positive well nourished, well developed and no apparent distress General Appearance ED: well developed HEENT Reports normocephalic, head/scalp atraumatic and TM's clear Tympanic Membrane ED: Yes TM's clear bilateral Mouth ED: Yes moist mucous membranes normal Eyes PERRL and EOMs intact bilaterally Neck full ROM and supple Chest Wall inspection of chest normal Resp normal respiratory effort and clear to auscultation bilaterally Cardio regular rate and regular rhythm GI soft to palpation, non-tender, non-distended and no masses Back/Spine normal ROM and normal to inspection Extremity normal to inspection and full ROM Neuro oriented x3, CN's II-XII intact bilaterally, moves all extremities, no focal motor deficits and no sensory deficits noted Sensorium / Orientation: awake and alert Coordination / Balance: [id number] test normal, [id number] test normal and rapid alternating mvmt upper ext normal Speech: speech normal Gait (Neuro): normal gait Motor Exam: strength 5/5 throughout and no pronator drift Psych mental status grossly normal and thought process normal Skin no rashes or lesions noted and no wounds <Dr. Eb Mcadams MD - Last Filed: 05/27/23 19:15> Physical Exam Const Vital Signs: 05/27/23 15:47 05/27/23 15:58 05/27/23 16:55 Temperature 98.1 F 97.3 F L Temperature Source Temporal Pulse Rate 98 94 Respiratory Rate 18 16 Respiratory Effort Normal Non-Labored Respiratory Pattern Normal Blood Pressure 165/86 H 148/71 H Blood Pressure Mean 112 96 Pulse Ox 97 99 Oxygen Delivery Method Room Air [facility] <SANNA Teran - Last Filed: 05/27/23 16:54> [facility] Narrative Medical decision making narrative: Patient is well-appearing and in no acute distress, he is presenting due to an episode of dizziness that occurred this afternoon. Previous history of vertigo. He is not ataxic, NIH 0, Brooklyn-Hallpike was performed by the attending and was positive on the left side. This is consistent with BPPV. Patient was treated with the Josephine maneuver and reported improvement of his symptoms. He has been encouraged to follow-up with his PCP and has been given return instructions. He is comfortable with plan. I have personally performed a face to face assessment of the patient and have reviewed the JELENA Note. I performed a substantive portion of the visit including all aspects of the following. My sosa findings include: History is remarkable for abrupt onset of vertigo. This occurred when he turned to the right. Symptoms last 1 to 2 minutes. He felt odd for about 30 to 60 minutes afterwards. He did not describe vertigo. He denied double vision blurred vision loss of vision. No trouble speech or swallowing. He denies paresthesia, anesthesia or motor weakness upper or lower extremity. He did not walk to the right or left. He felt just uneasy initially. He has had vertigo in the past. He denies ringing in his ears. Denies decreased hearing. He denies headache. There is no history of trauma. Exam is vital signs reveal elevated blood pressure. Repeat blood pressure was 148/71 which is his baseline. Head is atraumatic, cephalic. TMs noted and normal. Slight cerumen in the right and left external auditory canal. Nares patent. Posterior pharynx out erythema or exudate. Uvula midlin No deviation with protrusion. Neck is supple. There are no carotid bruits. Neck is supple. Heart is regular. Rate is normal. Is no murmur, gallop or rub. Lungs are clear auscultation. Alert oriented x 3. Cranials 2 through 12 are intact. No dysmetria. Motor is 5/5. Sensations intact. There is no clonus. Gait was observed and normal. Tandem gait is normal. The eye askew test and the hint test were both negative. Brooklyn-Hallpike maneuver was positive with head turned to the left. Medical Decision Making patient has paroxysmal benign positional vertigo. Patient was treated with Josephine maneuver. His symptoms resolved. Other additions or changes: Patient was reassessed prior to discharge. He has no return of symptoms. <Dr. Eb Mcadams MD - Last Filed: 05/27/23 19:15> [facility] Narrative Medical decision making narrative: I have personally performed a face to face assessment of the patient and have reviewed the JELENA Note. I performed a substantive portion of the visit including all aspects of the following. My sosa findings include: History is remarkable for abrupt onset of vertigo. This occurred when he turned to the right. Symptoms last 1 to 2 minutes. He felt odd for about 30 to 60 minutes afterwards. He did not describe vertigo. He denied double vision blurred vision loss of vision. No trouble speech or swallowing. He denies paresthesia, anesthesia or motor weakness upper or lower extremity. He did not walk to the right or left. He felt just uneasy initially. He has had vertigo in the past. He denies ringing in his ears. Denies decreased hearing. He denies headache. There is no history of trauma. Exam is vital signs reveal elevated blood pressure. Repeat blood pressure was 148/71 which is his baseline. Head is atraumatic, cephalic. TMs noted and normal. Slight cerumen in the right and left external auditory canal. Nares patent. Posterior pharynx out erythema or exudate. Uvula midlin No deviation with protrusion. Neck is supple. There are no carotid bruits. Neck is supple. Heart is regular. Rate is normal. Is no murmur, gallop or rub. Lungs are clear auscultation. Alert oriented x 3. Cranials 2 through 12 are intact. No dysmetria. Motor is 5/5. Sensations intact. There is no clonus. Gait was observed and normal. Tandem gait is normal. The eye askew test and the hint test were both negative. Brooklyn-Hallpike maneuver was positive with head turned to the left. Medical Decision Making patient has paroxysmal benign positional vertigo. Patient was treated with Josephine maneuver. His symptoms resolved. Other additions or changes: Patient was reassessed prior to discharge. He has no return of symptoms. Discharge Plan Triage Chief Complaint: Dizziness ED Midlevel Provider: Betzy Vigil ED Provider: Eb Mcadams Dx/Rx/DC Orders Clinical Impression: Benign paroxysmal positional vertigo of left ear, Type 2 diabetes mellitus, Hyperlipemia, Hypertension Instructions: ED BPV Vertigo Prescriptions: No Action juice plus fiber 6 cap PO DAILY atenolol 50 mg tablet 50 mg PO DAILY Qty: 90 3RF Pulmicort Flexhaler 180 mcg/actuation aerosol powdr breath activated 1 inh INHALATION BID Qty: 1 3RF fenofibrate 54 mg tablet 54 mg PO DAILY Qty: 90 3RF hydrochlorothiazide 25 mg tablet 25 mg PO QDAY Qty: 90 3RF lisinopril 40 mg tablet 40 mg PO QDAY Qty: 90 3RF metformin 1,000 mg tablet 1,000 mg PO BID Qty: 180 3RF pravastatin 40 mg tablet 40 mg PO DAILY Qty: 90 3RF omega-3 fatty acids-fish oil 1 EACH capsule 1 ea PO DAILY (DME) cpap supplies Qty: 1 0RF Rx Instructions: As directed fluticasone propionate [Flovent HFA] 220 mcg/actuation HFA aerosol inhaler 2 puff inhalation BID Qty: 12 1RF Tradjenta 5 mg tablet 5 mg PO QAM Qty: 90 1RF pioglitazone 30 mg tablet 30 mg PO DAILY Qty: 90 3RF amlodipine 10 mg tablet 10 mg PO QDAY Qty: 90 0RF albuterol sulfate 90 mcg/actuation HFA aerosol inhaler See Rx Instructions .ROUTE .COMPLEX Qty: 8 0RF Dose Instruction: INHALE 2 PUFFS BY MOUTH EVERY 8 HOURS NEEDED FOR SHORTNESS OF BREATH FOR WHEEZING Rx Instructions: INHALE 2 PUFFS BY MOUTH EVERY 8 HOURS NEEDED FOR SHORTNESS OF BREATH FOR WHEEZING Primary Care Provider: Owen Gutierrez FABRICATION SUPERVISOR Referrals: Owen Gutierrez [facility], FABRICATION SUPERVISOR-C [[facility]] - 5-7 Days Activity Restrictions/Additional Instructions: Return for any worsening of your symptoms. Disposition Disposition: Home, Self Care Discharge Date/Time: 05/27/23 16:56
[2023-05-27 16:55] VITALS: BP 148/71; PULSE 94; RESP 16; TEMP 36.3; O2SAT 99
--- OUTSIDE RECORDS SUMMARY | 2023-05-27 19:26 | XMS RPT_ITS | CCD ---
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 Off Name Role Phone Brenda YANG-Shmuel, Owen Tolliver Unavailable Unavailable Medications Completed/Discontinued Medications Medication Drug Class(es) Dates Sig (Normalized) Sig (Original) 200 actuat albuterol 0.09 mg/actuat metered dose inhaler (2 sources) beta2-Adrenergic Agonist Start: 12-29-2016 VENTOLIN HFA 108 (90 Base) MCG/ACT AERS take 1 to 2 puffs daily as needed ALBUTEROL SULFATE [id number] Owen Gutierrez FINANCIAL SERVICES COUNSELOR-C Problems Active Problems Problem Classification Problem Date Documented Da te Episodic/Chronic Diabetes mellitus without complication (1 source) Type 2 diabetes mellitus; Translations: [Type 2 diabetes mellitus without complications] Onset: 01-01-2017 01-01-2017 Chronic Disorders of lipid metabolism (1 source) Hyperlipidemia; Translations: [Hyperlipidemia, unspecified] 12-29-2016 Chronic Essential hypertension (1 source) Hypertensive disorder; Translations: [Essential (primary) hypertension] 12-29-2016 Chronic Unclassified (1 source) Influenza vaccination ; Translations: [Encounter for immunization] Onset: 01-01-2017 01-01-2017 Unclassified (1 source) Diabetic foot examination ; Translations: [Encounter for examination and observation for other specified reasons] Onset: 01-01-2017 01-01-2017 Past or Other Problems Problem Classification Problem Date Documented Date Episodic/Chronic Other diseases of veins and lymphatics (1 source) Peripheral venous insufficiency; Translations: [Venous insufficiency (chronic) (peripheral)] Onset: 01-01-2017 01-01-2017 Episodic Results Test Name Value Interpretation Reference Range Facil ity Vital Signs Date Time Vital Sign Value Performing Clinician Facility 01-01-2017 08:08-0400 BMI (Body Mass Index) 47.99 kg/m2 Owen HILLP[facility] Work Phone: 01-01-2017 08:08-0400 Body Temperature 97.9 [degF] Owen [facility] Work Phone: 01-01-2017 08:08-0400 BP Diastolic 92 mm[Hg] Owen [facility] Work Phone: 01-01-2017 08:08-0400 BP Systolic 155 mm[Hg] Owen Gutierrez FINANCIAL SERVICES COUNSELOR-Shmuel [facility] Work Phone: 01-01-2017 08:08-0400 Height 175.26 cm Owen YANG[facility] Work Phone: 01-01-2017 08:08-0400 Pulse (Heart Rate) 99 /min Owen YANG-C [facility] Work Phone: 01-01-2017 08:08-0400 Respiratory Rate 16 /min [facility] Work Phone: 01-01-2017 08:08-0400 Weight 147.42 kg Owen YANG-Shmuel [facility] Work Phone: Plan of Treatment Date Care Activity Detail Author Start: 04-02-2017 End: 04-02-2017 Appointment Appointment [facility] Work Phone: Start: 01-01-2017 End: 01-01-2017 Follow Up Appt 3 months Follow Up Appt 3 months [facility] Work Phone: Start: 01-01-2017 End: 01-01-2017 Podiatry Referral Podiatry Referral [facility] Work Phone: Immunizations Immunization Date Immunization Notes Care Provider Fa cility 01-01-2017 influenza, injectabl e, madin shanna canine kidney, preservative free Owen Gutierrez FINANCIAL SERVICES COUNSELOR-C [facility] Work Phone: Progress note 05-04-2021 Note Date & Type Note Facility 05-04-2021 Note HNO ID: [id number] Author: Espinoza Trejo APRN.PETR Service: ? Author Type: Nurse Practitioner Type: Progress Notes Filed: 05/04/2021 2:30 PM Note Text: Nontoxic-appearing male presents urgent care chief complaint cough. Duration of symptoms 10 days. Associated symptoms cough fever shortness of breath nasal congestion. Patient states beginning of illness he did have some body aches and chills. This is some subsided. Presents today for lingering cough. Patient states did have COVID-19 exposure. He is not vaccinated. On examination patient pulse ox was 90 sitting with ambulation dropped to 86. Heart rate 126 after ambulation. Respirations 28. With patient's presenting symptoms I recommended patient be seen in ED for further evaluation care. Patient will be accompanied by daughter to ED for further evaluation care. Espinoza Trejo APRN.PETR [facility] Summary Purpose Family History No Family History Records Found Advance Directives No Advanced Directives Records Found Additional Source Comments (unrecognized sect ion and content) No Status Records Found INFORMATION SOURCE (unrecogn ized section and content) FOR RECORDS PERTAINING TO PATIENTS WHO ARE OR HAVE BEEN ENROLLED IN A CHEMICAL DEPENDENCY/SUBSTANCEABUSE PROGRAM, SOME INFORMATION MAY BE OMITTED. This clinical summary was aggregated from multiple sources. Caution should be exercised in using it in the provision of clinical care. This summary normalizes information from multiple sources, and as a consequence, information in this document may materially change the coding, format and clinical context of patient data. In addition, data may be omitted in some cases. CLINICAL DECISIONS SHOULD BE BASED ON THE PRIMARY CLINICAL RECORDS. [facility] [employer] provides no warranty or guarantee of the accuracy or completeness of information in this document.
== END 2023-05-27 16:56 | disposition home or self-care (01) ==
LOC: ED 16:54
PROVIDERS: Emergency Provider Emergency Medicine; PCP Nurse Practitioner Family; Visit Provider Emergency Medicine
DX: H81.12 Benign paroxysmal vertigo, left ear (principal); E11.9 Type 2 diabetes mellitus without complications; I10 Essential (primary) hypertension; E78.5 Hyperlipidemia, unspecified; J45.909 Unspecified asthma, uncomplicated; G47.33 Obstructive sleep apnea (adult) (pediatric); Z79.84 Long term (current) use of oral hypoglycemic drugs; Z79.899 Other long term (current) drug therapy
CPT/HCPCS: 93005; 99282

== ENCOUNTER → 2023-09-02 | Outpatient (CLI) | payer MEDICARE, OTHER, SELFPAY ==
[2023-09-02 13:01] LABS: Absolute Lymphocyte Count 1.89 X10^3/uL (0.83-4.51); Absolute Neutrophil Count 3.9 X10^3/uL (2.0-7.7); Basophil# 0.05 X10^3/uL; Basophil% 0.8 % (0-1); Eosinophil# 0.17 X10^3/uL; Eosinophils% 2.6 % (0-5); Hematocrit 43.7 % (40-54); Hemoglobin 14.3 g/dL (13.0-16.5); Lymphocyte # 1.89 X10^3/ul (0.83-4.51); Lymphocyte % 28.5 % (19-41); Mean Corp Hgb Conc 32.7 g/dL (32-36); Mean Corpuscular Hgb 30.1 pg (27.0-32.0); Monocyte# 0.63 X10^3/uL; Monocyte% 9.5 % (0-10); NRBC Flagged by Analyzer 0 % (0-5); Neutrophil # 3.88 X10^3/uL (2.7-7.7); Neutrophil % 58.4 % (47-70); Platelet Count 276 K/mm3 (150-450); RBC Distribution Width CV 11.8 % (11.6-14.6); RBC Distribution Width SD 39.7 fl (35.1-43.9); Red Blood Count 4.75 M/mm3 (4.6-6.2); White Blood Count 6.6 K/mm3 (4.4-11.0)
[2023-09-02 13:24] LABS: Vitamin B12 217 pg/mL (211-911); Vitamin D,25 Hydroxy 22.6 ng/mL
[2023-09-02 13:37] LABS: ALB/GLOB Ratio 1.2 RATIO (0.9-2.4); AST(SGOT) 27 U/L (15-37); Alanine Aminotransfer ALT/SGPT 59 U/L (16-61); Albumin, Serum 3.8 g/dL (3.2-5.0); Alkaline Phosphatase 42 U/L (45-117); Anion Gap 10 (5-15); BUN 17 mg/dL (7-18); BUN/Creat Ratio 18.4 RATIO (10-20); Calcium,Total 9.5 mg/dL (8.5-10.1); Chloride 102 mmol/L (98-107); Cholesterol 164 mg/dL (200); Creatinine, Serum 0.92 mg/dL (0.70-1.30); EST Glomerular Filtration Rate 87 mL/min (>60); Est Glom Filt Rate - Afr Amer 105 mL/min (>60); Globulin 3.1 g/dL (2.2-4.2); Glucose 127 mg/dL (74-106); High Density Lipoprotein 31 mg/dL; PSA,Total - Annual Screen 0.66 ng/mL (0.00-4.00); Potassium 4.1 mmol/L (3.5-5.1); Protein, Total 6.9 g/dL (6.4-8.2); Sodium Level 137 mmol/L (136-145); Thyroid Stim Hormone (TSH) 1.15 uIU/mL (0.358-3.74); Triglycerides 243 mg/dL; Very Low Density Lipoprotein 49 mg/dL (5-40)
== END | disposition home or self-care (01) ==
PROVIDERS: PCP Nurse Practitioner Family; Referring Provider Nurse Practitioner Family; Visit Provider Nurse Practitioner Family
DX: E11.9 Type 2 diabetes mellitus without complications (principal); Z12.5 Encounter for screening for malignant neoplasm of prostate; E55.9 Vitamin D deficiency, unspecified
CPT/HCPCS: 36415; 80053; 80061; 82306; 82607; 84153; 84443; 85025; G0103

== ENCOUNTER → 2024-01-19 | Outpatient (CLI) | payer MEDICARE, OTHER, SELFPAY ==
--- NOTE | 2024-01-19 13:40 | NEURO ---
NCS and/or EMG Patient Report Ordering Doctor: Owen Gutierrez [facility] DATE OF SERVICE: 01/19/24 Rj presents for electrodiagnostic testing of the upper limbs. He reports worsening numbness and tingling in both hands. Electrodiagnostic findings: Median motor nerve demonstrates prolonged latency with reduced amplitude and reduced conduction velocity. Left median motor nerve demonstrates prolonged latency with reduced amplitude. Proximal response could not be obtained. Ulnar motor response is within normal limits bilaterally. Prolonged right median and left median F?wave. Absent median sensory latency at the wrist bilaterally. Needle EMG testing was performed the upper limbs. All muscles tested showed no evidence of denervation with normal motor unit action potentials. Electrodiagnostic impression: This is an abnormal study in the upper limbs 1. Electrodiagnostic findings suggestive of bilateral median mononeuropathy. This is consistent with a severe bilateral carpal tunnel syndrome. Multi Select Codes Neurology Neurology Interp Codes: 28860-72 Musc test done w/n test comp (interp) (2) and 15606-87 Nrv cndj test 9-10 studies (interp)
== END | disposition home or self-care (01) ==
LOC: PSN 11:56
PROVIDERS: PCP Nurse Practitioner Family; Referring Provider Nurse Practitioner Family; Visit Provider Nurse Practitioner Family
DX: R20.2 Paresthesia of skin (principal)
CPT/HCPCS: 95886; 95912

== ENCOUNTER 2024-03-22 10:03 | Day surgery (SDC) | payer MEDICARE, OTHER, SELFPAY ==
--- NOTE | 2024-03-17 09:04 | PAT.ANESEVAL ---
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 When Was Last Pacemaker Check QUESTION #4 FULL TEXT: You/Your Family Experience fever (hyperthermia) with Anesthesia Last Oral Intake Last Oral intake: Last Oral Intake NPO since Meds taken in AM with sips of water? Meds patient instructed to take am of surgery PONV PONV - mainspring fabrication supervisor: PONV - mainspring fabrication supervisor Female No 03/16/24 13:59 HX of Motion Sickness No 03/16/24 13:59 HX of N/V After Surgery No 03/16/24 13:59 Non-Smoker No 03/16/24 13:59 Duration of Surgery greater No 03/16/24 13:59 than 60 minutes Number of Risk Factors PONV Score Height & Weight Height & Weight: Anesthesia: Height & Weight Height 5 ft 8 in 02/07/24 09:50 Respiratory Assessment Respiratory Assessment - mainspring fabrication supervisor: Respiratory Tract Infection Hx - mainspring fabrication supervisor Hx Respiratory Tract Infection No 03/16/24 13:59 STOP Sleep Apnea STOP Sleep Apnea - mainspring fabrication supervisor: STOP Sleep Apnea - mainspring fabrication supervisor Hx Hypertension Yes: CONTROLLED WITH MED 03/16/24 13:59 Hx Sleep Apnea Yes 03/16/24 13:59 CPAP Yes 03/16/24 13:59 BIPAP No 03/16/24 13:59 Do you snore loudly (louder than talking or can be heard Do you often feel tired/ fatigued/ sleepy during daytime? Has anyone observed you stop breathing during sleep? STOP Results Positive 03/16/24 13:59 QUESTION #5 FULL TEXT : Do you snore loudly (louder than talking or can be heard through closed doors)? Tobacco Use History Tobacco Use History - mainspring fabrication supervisor: Tobacco Use History - mainspring fabrication supervisor Tobacco Use Smoking Status Current every day smoker 03/16/24 13:59 Hx Tobacco Use Yes 03/16/24 13:59 Years Smoking Packs Smoked per Day Smoking Cessation Date was within the last 15 years Hx Smoking Cessation Date Hx Smoking Cessation Counseling Hematologic Medial History Hematologic Hx - mainspring fabrication supervisor: Hematologic Medical Hx - direct marketing executive Hx of Blood Transfusion No 03/16/24 13:59 Hx of Transfusion in last 3 No 03/16/24 13:59 Months Date of Last Transfusion (if within last 3 months) Ever experience any problems No 03/16/24 13:59 with transfusion(s)? Specify any problems Hx of Preganancy in last 3 N/A 03/16/24 13:59 Months Nurse Filling Out Transfusion DSCHRIBER 03/16/24 13:59 & Questions: Date: 03/16/24 03/16/24 13:59 Time: 14:00 03/16/24 13:59 Patient unable to answer at this time (ie. confused, unrespo /Reproduction History /Reproductive History - mainspring fabrication supervisor: /Reproductive Hx- mainspring fabrication supervisor Hx Now No 03/16/24 13:59 Gestational Age (in weeks): EDC: Hx Hx Para Hx Section SAB No 03/16/24 13:59 PFSH Medical History (Updated 03/16/24 @ 14:05 by Myrna Slaughter) Wears glasses Arthritis Syncope Dietary restriction Chewing tobacco dependence Shortness of breath on exertion Leg cramps History of edema Bilateral carpal tunnel syndrome Costochondritis Type 2 diabetes mellitus Diabetes Pneumonia Hypertension Hyperlipemia Asthma Home Medications ?Medication ?Instructions ?Recorded ?Last Taken ?Type omega-3 fatty acids-fish oil 340 1 ea PO DAILY 12/29/17 12/29/17 History mg-1,000 mg capsule cpap supplies #1 ea 01/04/19 Unknown Rx atenolol 50 mg tablet 50 mg PO DAILY #90 tabs 04/22/22 Unknown Rx fenofibrate 54 mg tablet 54 mg PO DAILY #90 tabs 04/22/22 Unknown Rx hydrochlorothiazide 25 mg tablet 25 mg PO QDAY #90 tabs 04/22/22 Unknown Rx lisinopril 40 mg tablet 40 mg PO QDAY #90 tabs 04/22/22 Unknown Rx metformin 1,000 mg tablet 1,000 mg PO BID #180 tabs 04/22/22 Unknown Rx amlodipine 10 mg tablet 10 mg PO QDAY #90 tabs 08/20/22 Unknown Rx fluticasone furoate 100 1 inh inhalation QDAY 02/07/24 Unknown History mcg/actuation blister powder for inhalation (Arnuity Ellipta) tirzepatide 12.5 mg/0.5 mL 12.5 mg subcut MO 02/07/24 03/13/24 History subcutaneous pen injector (Mounrogers) albuterol sulfate 90 mcg/actuation 1 inh inhalation DAILY PRN PRN 03/16/24 Unknown History aerosol inhaler shortness of breath or wheezing pravastatin 40 mg tablet 40 mg PO QHS 03/16/24 Unknown History Allergy/AdvReac Type Severity Reaction Status Date / Time No Known Allergies Allergy Verified 03/16/24 13:56 Family History Father Diabetes Mother Diabetes COPD (chronic obstructive pulmonary disease) Surgical History (Updated 03/16/24 @ 14:05 by Myrna Slaughter) Hx of colonoscopy Social History Smoking Status: Current every day smoker tobacco type: smokeless tobacco alcohol intake: never substance use type: does not use what type of physical activity do you participate in: none Audit: Pertinent Findings Pertinent Findings EKG Perinent findings: 05/2023 s tach 102. ant/sep infarct, age indetermined. Recommendation Anesthesia Recommendation Anesthesia recommendation: OPTIMIZED for anesthesia
[2024-03-22] VITALS (8 sets, daily range): BP systolic 105–146; BP diastolic 58–94; PULSE 80–91; RESP 16–18; TEMP 36.1–36.8; O2SAT 95–100; BMI 44.9
--- NOTE | 2024-03-22 10:49 | PCM.PRE.AN2 ---
ASA Classification* ASA Classification ASA Classification: 3 Assessment & Plan Anesthesia* Anesthesia Assessment Anesthesia Assessment: Discussed sedation and/or anesthesia options, risks, benefits, and alternatives with patient/parents/legal guardian/POA. Questions invited. The patient/parents/legal guardian/POA seems to understand and agrees to proceed with anesthesia plan. Reviewed the physical assessment, medical history, allergy history and patient home medications list prior to surgery/procedure/anesthetic and documented any changes. Performed airway and anesthesia risk assessments. Anesthesia Type Anesthesia Type: MAC Anesthesia Focused Assessment* Temperature: 98.3 F Pulse Rate: 91 Blood Pressure: 146/94 Respiratory Rate: 16 Pulse Ox: 96 Airway Assessment Mouth opens: >3 cm Mallampati Score: II Focused Labs Anesthesia Preop lab: CBC WBC 6.6 K/mm3 (4.4-11.0) 09/02/23 09:10 RBC 4.75 M/mm3 (4.6-6.2) 09/02/23 09:10 Hgb 14.3 g/dL (13.0-16.5) 09/02/23 09:10 Hct 43.7 % (40-54) 09/02/23 09:10 Plt Count 276 K/mm3 (150-450) 09/02/23 09:10 CHEMISTRY Potassium 4.1 mmol/L (3.5-5.1) 09/02/23 09:10 Sodium 137 mmol/L (136-145) 09/02/23 09:10 BUN 17 mg/dL (7-18) 09/02/23 09:10 Creatinine 0.92 mg/dL (0.70-1.30) 09/02/23 09:10 Glucose 127 mg/dL (74-106) H 09/02/23 09:10 POC Glucose 156 mg/dL (70-110) H 01/03/18 07:25 TSH 1.15 uIU/mL (0.358-3.74) 09/02/23 09:10 COAG Pre-Assessment Diagnosis/Proposed Procedure Planned Operative Procedure(s): LEFT ENDOSCOPIC CARPAL TUNNEL RELEASE Anesthesia History 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 When Was Last Pacemaker Check QUESTION #4 FULL TEXT: You/Your Family Experience fever (hyperthermia) with Anesthesia Last Oral Intake Last Oral intake: Last Oral Intake NPO since 21:00 03/22/24 10:29 Meds taken in AM with sips of No 03/22/24 10:29 water? Meds patient instructed to take am of surgery PONV PONV - dehydrogenation operator head: PONV - dehydrogenation operator head Female No 03/16/24 13:59 HX of Motion Sickness No 03/16/24 13:59 HX of N/V After Surgery No 03/16/24 13:59 Non-Smoker No 03/16/24 13:59 Duration of Surgery greater No 03/16/24 13:59 than 60 minutes Number of Risk Factors PONV Score Height & Weight Height & Weight: Anesthesia: Height & Weight Height 5 ft 8 in 03/22/24 10:29 Weight: 134 kg 03/22/24 10:29 Body Mass Index (BMI) 44.9 03/22/24 10:29 Respiratory Assessment Respiratory Assessment - dehydrogenation operator head: Respiratory Tract Infection Hx - dehydrogenation operator head Hx Respiratory Tract Infection No 03/16/24 13:59 STOP Sleep Apnea STOP Sleep Apnea - dehydrogenation operator head: STOP Sleep Apnea - dehydrogenation operator head Hx Hypertension Yes: CONTROLLED WITH MED 03/16/24 13:59 Hx Sleep Apnea Yes 03/16/24 13:59 CPAP Yes 03/16/24 13:59 BIPAP No 03/16/24 13:59 Do you snore loudly (louder than talking or can be heard Do you often feel tired/ fatigued/ sleepy during daytime? Has anyone observed you stop breathing during sleep? STOP Results Positive 03/16/24 13:59 QUESTION #5 FULL TEXT : Do you snore loudly (louder than talking or can be heard through closed doors)? 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 Specify any problems Hx of Preganancy in last 3 N/A 03/16/24 13:59 Months Nurse Filling Out Transfusion DSCHRIBER 03/16/24 13:59 & Questions: Date: 03/16/24 03/16/24 13:59 Time: 14:00 03/16/24 13:59 Patient unable to answer at this time (ie. confused, unrespo /Reproduction History /Reproductive History - dehydrogenation operator head: /Reproductive Hx- dehydrogenation operator head Hx Now No 03/16/24 13:59 Gestational Age (in weeks): EDC: Hx Hx Para Hx Section SAB No 03/16/24 13:59 Active Medications Active Medications: Current Medications Generic Name Dose Route Start Last Admin Trade Name Freq PRN Reason Stop Dose Admin Cefazolin Sodium 3 gm/ N/A 30 mls @ 600 mls/hr 03/22/24 11:45 IV 03/22/24 11:47 PREOP ONE [facility] Medical History Wears glasses Arthritis Syncope Dietary restriction Chewing tobacco dependence Shortness of breath on exertion Leg cramps History of edema Bilateral carpal tunnel syndrome Costochondritis Type 2 diabetes mellitus Diabetes Pneumonia Hypertension Hyperlipemia Asthma Home Medications ?Medication ?Instructions ?Recorded ?Last Taken ?Type omega-3 fatty acids-fish oil 340 1 ea PO DAILY 12/29/17 12/29/17 History mg-1,000 mg capsule cpap supplies #1 ea 01/04/19 Unknown Rx atenolol 50 mg tablet 50 mg PO DAILY #90 tabs 04/22/22 Unknown Rx fenofibrate 54 mg tablet 54 mg PO DAILY #90 tabs 04/22/22 Unknown Rx hydrochlorothiazide 25 mg tablet 25 mg PO QDAY #90 tabs 04/22/22 Unknown Rx lisinopril 40 mg tablet 40 mg PO QDAY #90 tabs 04/22/22 Unknown Rx metformin 1,000 mg tablet 1,000 mg PO BID #180 tabs 04/22/22 Unknown Rx amlodipine 10 mg tablet 10 mg PO QDAY #90 tabs 08/20/22 Unknown Rx fluticasone furoate 100 1 inh inhalation QDAY 02/07/24 Unknown History mcg/actuation blister powder for inhalation (Arnuity Ellipta) tirzepatide 12.5 mg/0.5 mL 12.5 mg subcut MO 02/07/24 03/13/24 History subcutaneous pen injector (Mounjaro) albuterol sulfate 90 mcg/actuation 1 inh inhalation DAILY PRN PRN 03/16/24 Unknown History aerosol inhaler shortness of breath or wheezing pravastatin 40 mg tablet 40 mg PO QHS 03/16/24 Unknown History Allergy/AdvReac Type Severity Reaction Status Date / Time No Known Allergies Allergy Verified 03/22/24 10:22 Family History Father Diabetes Mother Diabetes COPD (chronic obstructive pulmonary disease) Surgical History Hx of colonoscopy Social History Smoking Status: Current every day smoker tobacco type: smokeless tobacco alcohol intake: never substance use type: does not use what type of physical activity do you participate in: none Review of Systems (Anesthesia) ROS Narrative System reviewed and no additional complaints, except as documented.
[2024-03-22 10:55] LABS: Bedside Glucose 172 mg/dL (74-106)
--- NOTE | 2024-03-22 11:39 | HP.PCM_ITS ---
HPI - General HPI Narrative RJ KAMINSKI, is a 68 M who presents for left endoscopic carpal tunnel release no changes to history and physical exam risk alternatives benefits. Counseling given. Wrist marked they understood no further questions or concerns okay to proceed. MR#: [id number] Acct: [id number] Name: RJ KAMINSKI Rep #: [id number] : 1955 Provider: Dr. Lc Wilson MD Age/Sex: 68/M Location: [facility] [place] Status: Signed Intake Vital Signs 05/27/2414:47 02/06/2409:50 Height 5 ft 8 in 5 ft 8 in Weight: 291 lb 8 oz BMI 44.3 Intake Visit Reasons: BI LAT WRISTS Accompanied by: Self Is patient in pain?: No Allergies No Known Allergies Allergy (Verified 05/27/23 15:46) Medications ?Medication ?Instructions ?Recorded ?Confirmed ?Type omega-3 fatty acids-fish oil 340 1 ea PO DAILY 12/29/17 02/07/24 History mg-1,000 mg capsule cpap supplies #1 ea 01/04/19 02/07/24 Rx atenolol 50 mg tablet 50 mg PO DAILY #90 tabs 04/22/22 02/07/24 Rx fenofibrate 54 mg tablet 54 mg PO DAILY #90 tabs 04/22/22 02/07/24 Rx hydrochlorothiazide 25 mg tablet 25 mg PO QDAY #90 tabs 04/22/22 02/07/24 Rx lisinopril 40 mg tablet 40 mg PO QDAY #90 tabs 04/22/22 02/07/24 Rx metformin 1,000 mg tablet 1,000 mg PO BID #180 tabs 04/22/22 02/07/24 Rx pravastatin 40 mg tablet 40 mg PO DAILY #90 tabs 04/22/22 02/07/24 Rx amlodipine 10 mg tablet 10 mg PO QDAY #90 tabs 08/20/22 02/07/24 Rx albuterol sulfate 90 mcg/actuation See Rx Instructions .Route 12/02/22 02/07/24 Rx aerosol inhaler .COMPLEX #8 grams fluticasone furoate 100 1 inh inhalation QDAY 02/07/24 02/07/24 History mcg/actuation blister powder for inhalation (Arnuity Ellipta) tirzepatide 12.5 mg/0.5 mL mg subcut 02/07/24 02/07/24 History subcutaneous pen injector (Mounjaro) Have you fallen in the past year?: No PFSH Medical History Bilateral carpal tunnel syndrome Costochondritis Type 2 diabetes mellitus Diabetes Sleep apnea Pneumonia Hypertension Hyperlipemia Asthma Family History Father DiabetesMother Diabetes COPD (chronic obstructive pulmonary disease) Social History Smoking Status: Never smoker alcohol intake: never substance use type: does not use what type of physical activity do you participate in: none HPI BI LAT WRISTS Details: This documentation accurately reflects the service provided and the decisions made by me, Dr. Lc Wilson MD 02/07/24 0904. Part of today?s visit was documented by [ ], acting as scribe. RJ KAMINSKI is a 68 year old M here today for bilateral carpal tunnel syndrome. 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 RHD. numb all the time. thumb index and middle fingers. neg flick. treatment, wrist braces at night. monjouro and pills for diabetes. hg a1c last one was 6.1. 3 years. no better. worse with driving. Supplemental Info [facility] Pulmonary Services/Neurology [address] [place] [address] MR#: [id number] Acct: [id number] Name: RJ KAMINSKI Rep #: [id number] : 1955 68 From: Mauro Nath MD Referring Dr: Owen Gutierrez [facility] [employer] [facility] Status: REG CLI Location: PSN Date: 01/19/24 Sex: M C NCS and/or EMG Patient Report Ordering Doctor: Owen Gutierrez [facility] DATE OF SERVICE: 01/19/24 Rj presents for electrodiagnostic testing of the upper limbs. He reports worsening numbness and tingling in both hands. Electrodiagnostic findings: Median motor nerve demonstrates prolonged latency with reduced amplitude and reduced conduction velocity. Left median motor nerve demonstrates prolonged latency with reduced amplitude. Proximal response could not be obtained. Ulnar motor response is within normal limits bilaterally. Prolonged right median and left median F?wave. Absent median sensory latency at the wrist bilaterally. Needle EMG testing was performed the upper limbs. All muscles tested showed no evidence of denervation with normal motor unit action potentials. Electrodiagnostic impression: This is an abnormal study in the upper limbs 1. Electrodiagnostic findings suggestive of bilateral median mononeuropathy. This is consistent with a severe bilateral carpal tunnel syndrome. Multi Select Codes Neurology Neurology Interp Codes: 24802-48 Musc test done w/n test comp (interp) (2) and 15390-71 Nrv cndj test 9-10 studies (interp) Coding Level of Care Code Off vis,new,level 4 Diagnoses Bilateral carpal tunnel syndrome G56.03 Assessment and Plan Assessment and Plan (1) Bilateral carpal tunnel syndrome: Status: Acute Plan: 68-year-old man with bilateral carpal tunnel syndrome this is graded as severe on the nerve conduction studies. The patient also has diabetes A1c 6.1. These are known risk factors for possible increased risk of infection or other complications as well as difficulty in recovering in terms of the nerve function. We discussed the diagnosis prognosis different treatment options available include but not limited to rest ice anti-inflammatories active modifications nerve gliding physical therapy nighttime splinting cortisone injections as well as open or endoscopic surgical release of the median nerve. Patient wishes to provide with left endoscopic carpal tunnel release we have put him on the surgery schedule signed the consent form for that. He understands and I explained the recovery associated with that 2 weeks to heal the incision up to 6 weeks sometimes more before going back to heavy lifting gripping. Pros and cons risks and benefits were discussed with the patient including but not limited to infection, pain, stiffness, bleeding, damage to surrounding structures, neurovascular injury, recurrence or retear, failure or wear of hardware or fixation, instability, fracture, deep vein thrombosis and pulmonary embolism, anesthetic risks, , patient dissatisfaction, need for further surgery and other risks. Patient understood and wished to proceed with surgery, and signed the informed consent documentation. Clinical Quality Measures Falls Risk Screening/Assistive Devices Have you fallen in the past year?: No Ortho Exam General General: Yes no acute distress Neurologic: Yes alert and Yes oriented x3 Psychologic: Yes reasonable and appropriate Right Wrist/Hand Skin/Wound: Yes CDI, No Swelling, No Ecchymosis, Yes nail intact and Yes capillary refill normal Right Wrist: Yes ROM-Extension 0-60, ROM-Flexion 0-80, ROM-Pronation 0-80, ROM- Supination 0-90, Durken's Test, Tinel's (neg at elbow and wrist), Phalen's and Thenar Atrophy; No Hypothenar Atrophy Motor: EPL: 5, FDP-2: 5, 1st Dorsal Interosseous: 5 and APB: 5 Sensation: Radial: I, Ulnar: I and Median: D Left Wrist/Hand Skin/Wound: Yes CDI, No Swelling, No Ecchymosis, Yes nail intact, Yes capillary refill normal and No erythema Left Wrist: Yes ROM-Extension 0-60, Yes ROM-Flexion 0-80, Yes ROM-Pronation 0- 80, Yes ROM-Supination 0-90, Yes Durken's Test, Yes Tinel's (neg wrist and elbow), Yes Phalen's and Yes Thenar Atrophy; No Hypothenar Atrophy Motor: EPL: 5, FDP-2: 5, 1st Dorsal Interosseous: 5 and APB: 5 Sensation: Radial: I, Ulnar: I and Median: D [facility] Medical History Wears glasses Arthritis Syncope Dietary restriction Chewing tobacco dependence Shortness of breath on exertion Leg cramps History of edema Bilateral carpal tunnel syndrome Costochondritis Type 2 diabetes mellitus Diabetes Pneumonia Hypertension Hyperlipemia Asthma Home Medications ?Medication ?Instructions ?Recorded ?Last Taken ?Type omega-3 fatty acids-fish oil 340 1 ea PO DAILY 12/29/17 12/29/17 History mg-1,000 mg capsule cpap supplies #1 ea 01/04/19 Unknown Rx atenolol 50 mg tablet 50 mg PO DAILY #90 tabs 04/22/22 Unknown Rx fenofibrate 54 mg tablet 54 mg PO DAILY #90 tabs 04/22/22 Unknown Rx hydrochlorothiazide 25 mg tablet 25 mg PO QDAY #90 tabs 04/22/22 Unknown Rx lisinopril 40 mg tablet 40 mg PO QDAY #90 tabs 04/22/22 Unknown Rx metformin 1,000 mg tablet 1,000 mg PO BID #180 tabs 04/22/22 Unknown Rx amlodipine 10 mg tablet 10 mg PO QDAY #90 tabs 08/20/22 Unknown Rx fluticasone furoate 100 1 inh inhalation QDAY 02/07/24 Unknown History mcg/actuation blister powder for inhalation (Arnuity Ellipta) tirzepatide 12.5 mg/0.5 mL 12.5 mg subcut MO 02/07/24 03/13/24 History subcutaneous pen injector (Jazzmine) albuterol sulfate 90 mcg/actuation 1 inh inhalation DAILY PRN PRN 03/16/24 Unknown History aerosol inhaler shortness of breath or wheezing pravastatin 40 mg tablet 40 mg PO QHS 03/16/24 Unknown History Allergy/AdvReac Type Severity Reaction Status Date / Time No Known Allergies Allergy Verified 03/22/24 10:22 Family History Father Diabetes Mother Diabetes COPD (chronic obstructive pulmonary disease) Surgical History Hx of colonoscopy Social History Smoking Status: Current every day smoker tobacco type: smokeless tobacco alcohol intake: never substance use type: does not use what type of physical activity do you participate in: none Vital Signs Vital Signs Vital Signs: 03/22/24 10:29 03/22/24 10:29 03/22/24 10:50 Temperature 98.3 F 98.3 F Temperature Source Temporal Pulse Rate 91 91 Respiratory Rate 16 16 Respiratory Pattern Normal Blood Pressure 146/94 H 146/94 H Blood Pressure Mean 111 Blood Pressure Source Monitor Blood Pressure Position Sitting Blood Pressure Location Right Arm Pulse Ox 96 96 Oxygen Delivery Method Room Air Weight Weight: 295 lb 6.711 oz Body Mass Index (BMI) 44.9 Results Lab / Micro Data Labs: Laboratory Results - last 24 hr 03/22/24 10:22: POC Glucose 172 H
[2024-03-22] MEDS: Bupivacaine 0.25% 30 ML Vial (12:14)
[2024-03-22] MEDS: Cefazolin 3 GM in Syringe 1 EACH IV (12:28)
--- NOTE | 2024-03-22 13:08 | OP.PCM_ITS ---
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 Placed upon on the table. Local/MAC induced by the anesthetic team. Patient placed supine on the table all bony prominences padded. SCDs on the legs. Bed turned 90 degrees. Hand table used. Tourniquet applied properly padded to the upper extremity. Upper extremity prepped and draped in the usual sterile fashion with chlorhexidine- based prep solution allowing over 3 minutes drying time prior to draping. Preoperative timeout performed to confirm the site patient and the surgery. Began by elevating the limb and inflated the tourniquet to 250 mmHg. I used the Arthex center line endoscopic carpal tunnel kit / technique. I made a transverse 2 cm incision in line with the? transverse wrist crease.? This was in line with the fourth digit.? I carried the dissection down through skin and subcutaneous tissue achieved meticulous hemostasis. Just ulnar to palmaris tendon.? I incised the antebrachial fascia.? I passed sequential dilators into the carpal tunnel along the radial border of the Guyon's canal aiming for the fourth digit with the hand in extension.? I used a synovial elevator to identify the transverse fibers of the transverse carpal tunnel ligament.? Passed the scope into the carpal tunnel. Once I had identified the full proximal and distal extent of the ligament I fully released the ligament under direct visualization by deploying the blade and slowly withdrawing the scope made sequential passes until I no longer felt tension as well as the entire extent of the ligament was released under direct visualization.? Sounded the tunnel with martinez tenotomy scissors, complete release, no bands. Arthroscope light was more visible through the skin. Pictures taken and saved. Wounds thoroughly irrigated.? 3cc 0.25% bupivicaine for local anesthesia. Tourniquet let down prior to end of the case and meticulous hemostasis achieved.? Thorough irrigation.? ? Incisions closed with 3-0 vicryl and 3-0 moncryl for the skin, then dermabond.?Then adaptic 4x4 gauze and tape. Patient woken up,? transferred off the operating room table and taken to pos tanesthetic care unit in stable condition. All sponge needle instrument counts were correct no complications.?Plan for the patient to be discharged home according to day surgery criteria when they are comfortable. Follow-up in the office in 2 days time. Gentle ROM hand and elbow no heavy lifting. cpt 51375 Surgical Findings: carpal tunnel syndrome Complications Complications: No Admit VTE Documentation VTE Present on Admission: No VTE Mechan Device Prophylaxis: SCD's VTE Pharm Prophylaxis ordered?: No Reason prophylaxis not ordered: Treatment Not Indicated
--- NOTE | 2024-03-22 13:08 | PCM.POST.ANE ---
Anesthesia: Postop Eval I Current Vital Signs Temperature: 97 F Pulse Rate: 88 Blood Pressure: 126/69 Respiratory Rate: 16 Pulse Ox: 100 Assessment Airway patent: Yes Spontaneous unlabored respirations: Yes nausea: No Vomiting: No Anesthesia Complication: No Fluid Hydration Crystalloid volume administer (ml): 30 Total IV fluid infused: 30 Progress Note Anesthesia document: Postop Eval 1 completed: Yes
--- NOTE | 2024-03-22 13:09 | PCM.POSTANE2 ---
Anesthesia Postop Eval I Sum Postop Eval Completion status Anesthesia document: Postop Eval 1 completed: Yes Anesthesia Postop Eval I Summary Anesthesia Postop Eval I Summary: Anesthesia Postop Eval I: Assessment Summary Airway patent Yes 03/22/24 13:08 Spontaneous unlabored Yes 03/22/24 13:08 respirations Mental status nausea No 03/22/24 13:08 Vomiting No 03/22/24 13:08 Anesthesia Postop Eval I: Fluid Summary Crystalloid volume administer 30 03/22/24 13:08 (ml) Colloids volume administered ( ml) Blood Product volume administered (ml) Total IV fluid infused 30 03/22/24 13:08 Anesthesia Postop Eval I: Summary Notes Anesthesia Complication No 03/22/24 13:08 Anesthesia Complication Comment: Post-operative progress note Anesthesia: Postop Eval II Evaluation Mental status: Awake Pain Level: 0 nausea: No Vomiting: No
--- NOTE | 2024-03-22 13:10 | EX.PCM.DISCH ---
Discharge Instructions Diet Discharge Diet: No restrictions Activity Ice area for (Minutes): 10 Lifting Restrictions: no lifting over 1 pound, no heavy gripping Keep extremity elevated above heart level: Operative Extremity Dressing / Incision Call your doctor if your incision/area has: Continuous Slow Oozing, Sudden Increased Bleeding, Increased Pain/ Swelling, Increased Redness, Foul Smelling Discharge and Swelling at the incision site Call your doctor if you observe: Fever of 101 or Higher, Coldness, Increased Pain and Numbness or Tingling Change Dressing in: leave in place till F/U Cleanse incision/area with: Do not get Incision Wet Follow Up Care Please Follow Up With: Lc Wilson MD When: next week Test Results: Test results from this visit will be discussed in further detail at your follow-up appointment, if applicable. Discharge Plan Admission Attending Provider: Lc Wilson Primary Care Provider: Owen Gutierrez Instructions Print Language: Montenegrin Discharge Orders/Prescriptions Prescriptions: New oxycodone-acetaminophen [Endocet] 5-325 mg tablet 1 tab PO Q8H MDD 3 PRN (Reason: pain) 3 Days Qty: 7 0RF No Action atenolol 50 mg tablet 50 mg PO DAILY Qty: 90 3RF fenofibrate 54 mg tablet 54 mg PO DAILY Qty: 90 3RF hydrochlorothiazide 25 mg tablet 25 mg PO QDAY Qty: 90 3RF lisinopril 40 mg tablet 40 mg PO QDAY Qty: 90 3RF metformin 1,000 mg tablet 1,000 mg PO BID Qty: 180 3RF Arnuity Ellipta 100 mcg/actuation blister with device 1 inh inhalation QDAY Mounjaro 12.5 mg/0.5 mL pen injector 12.5 mg subcut MO omega-3 fatty acids-fish oil 1 EACH capsule 1 ea PO DAILY pravastatin 40 mg tablet 40 mg PO QHS albuterol sulfate 90 mcg/actuation HFA aerosol inhaler 1 inh inhalation DAILY PRN PRN (Reason: shortness of breath or wheezing) Rx Instructions: INHALE 2 PUFFS BY MOUTH EVERY 8 HOURS NEEDED FOR SHORTNESS OF BREATH FOR WHEEZING (DME) cpap supplies Qty: 1 0RF Rx Instructions: As directed amlodipine 10 mg tablet 10 mg PO QDAY Qty: 90 0RF Referrals / Follow Up: Lc Wilson MD [Med Staff - Active Staff] - Owen Gutierrez, SUPERVISOR-C [Primary Care Provider] - Disposition Disposition (needs filled in before D/C Order can be placed): Home, Self Care
== END 2024-03-22 14:20 | disposition home or self-care (01) ==
LOC: SDC 10:04 → AC 10:14
PROVIDERS: PCP Nurse Practitioner Family; Referring Provider Orthopaedic Surgery Sports Medicine; Visit Provider Orthopaedic Surgery Sports Medicine
PROC: (CPT 64721; principal; 2024-03-22 11:30)
DX: G56.03 Carpal tunnel syndrome, bilateral upper limbs (principal); E11.9 Type 2 diabetes mellitus without complications; Z79.84 Long term (current) use of oral hypoglycemic drugs; E78.5 Hyperlipidemia, unspecified; Z79.51 Long term (current) use of inhaled steroids; Z79.85 Long-term (current) use of injectable non-insulin antidiabetic drugs; I10 Essential (primary) hypertension; J45.909 Unspecified asthma, uncomplicated; F17.220 Nicotine dependence, chewing tobacco, uncomplicated; Z79.899 Other long term (current) drug therapy
CPT/HCPCS: 64721; 01810; 82962; A4216

== ENCOUNTER 2024-05-19 08:05 | Day surgery (SDC) | payer MEDICARE, OTHER, SELFPAY ==
[2024-05-19] VITALS (8 sets, daily range): BP systolic 120–142; BP diastolic 64–76; PULSE 91–98; RESP 16–18; TEMP 36.3–37.2; O2SAT 94–99; BMI 43.4
--- NOTE | 2024-05-19 08:15 | PCM.HP.STD ---
HPI - General HPI Narrative CASIE KAMINSKI, is a 68 M who presents for right endoscopic carpal tunnel release. No changes to history and physical exam. Right wrist marked. Risks alternatives benefits postoperative instructions given. The patient understands already had it done on the other side. He will wear a brace for the first 2 weeks. Okay to proceed. Pros and cons risks and benefits were discussed with the patient including but not limited to infection, pain, stiffness, bleeding, damage to surrounding structures, neurovascular injury, recurrence or retear, failure or wear of hardware or fixation, instability, fracture, deep vein thrombosis and pulmonary embolism, anesthetic risks, , patient dissatisfaction, need for further surgery and other risks. Patient understood and wished to proceed with surgery, and signed the informed consent documentation. MR#: [id number] Acct: [id number] Name: CASIE KAMINSKI Rep #: [id number] : 1955 Provider: Dr. Lc Wilson MD Age/Sex: 68/M [place] [facility] [place] Status: Signed Intake Vital Signs 03/22/2410:29 04/06/2509:18 Height 5 ft 8 in 5 ft 8 in Intake Visit Reasons: LEFT WRIST Chief Complaint: left wrist post op Is patient in pain?: No Allergies No Known Allergies Allergy (Verified 05/08/24 09:17) Medications ?Medication ?Instructions ?Recorded ?Confirmed ?Type omega-3 fatty acids-fish oil 340 1 ea PO DAILY 12/29/17 05/08/24 History mg-1,000 mg capsule cpap supplies #1 ea 01/04/19 05/08/24 Rx atenolol 50 mg tablet 50 mg PO DAILY #90 tabs 04/22/22 05/08/24 Rx fenofibrate 54 mg tablet 54 mg PO DAILY #90 tabs 04/22/22 05/08/24 Rx hydrochlorothiazide 25 mg tablet 25 mg PO QDAY #90 tabs 04/22/22 05/08/24 Rx lisinopril 40 mg tablet 40 mg PO QDAY #90 tabs 04/22/22 05/08/24 Rx metformin 1,000 mg tablet 1,000 mg PO BID #180 tabs 04/22/22 05/08/24 Rx amlodipine 10 mg tablet 10 mg PO QDAY #90 tabs 08/20/22 05/08/24 Rx fluticasone furoate 100 1 inh inhalation QDAY 02/07/24 05/08/24 History mcg/actuation blister powder for inhalation (Arnuity Ellipta) tirzepatide 12.5 mg/0.5 mL 12.5 mg subcut FR 02/07/24 05/08/24 History subcutaneous pen injector (Carlosundianro) Held on 05/05/24. Instructions: ON HOLD FOR SURGERY ON 05/19/24 albuterol sulfate 90 mcg/actuation 1 inh inhalation DAILY PRN PRN 03/16/24 05/08/24 History aerosol inhaler shortness of breath or wheezing pravastatin 40 mg tablet 40 mg PO QHS 03/16/24 05/08/24 History Have you fallen in the past year?: No [facility] Medical History (Updated 05/05/24 @ 08:34 by Jenn Rutledge) CPAP (continuous positive airway pressure) dependence Wears glasses Arthritis Syncope Dietary restriction Chewing tobacco dependence Shortness of breath on exertion Leg cramps History of edema Bilateral carpal tunnel syndrome Costochondritis Type 2 diabetes mellitus Diabetes Pneumonia Hypertension Hyperlipemia Asthma Surgical History (Updated 05/05/24 @ 08:25 by Jenn Rutledge) History of carpal tunnel surgery of left wrist Hx of colonoscopy Family History Father DiabetesMother Diabetes COPD (chronic obstructive pulmonary disease) Social History Smoking Status: Current every day smoker tobacco type: smokeless tobacco alcohol intake: never substance use type: does not use what type of physical activity do you participate in: none HPI LEFT WRIST Chief Complaint: post op left wrist Details: This documentation accurately reflects the service provided and the decisions made by me, Dr. Lc Wilson MD 05/08/24 0805. Part of today?s visit was documented by [ ], acting as scribe. CASIE KAMINSKI is a 68 year old M here today for 6 weeks FU Left endoscopic carpal tunnel release. Doing well numbness improving very mild pillar pain. Coding Level of Care Code Global Post Op Diagnoses Bilateral carpal tunnel syndrome G56.03 Assessment and Plan Assessment and Plan (1) Bilateral carpal tunnel syndrome: Status: Acute Plan: CASIE KAMINSKI is a 68 year old M here today for 6 weeks FU Left endoscopic carpal tunnel release. Doing well okay to return back to heavy lifting gripping will see the patient in a couple weeks for right endoscopic carpal tunnel release as well. Clinical Quality Measures Falls Risk Screening/Assistive Devices Have you fallen in the past year?: No Ortho Exam General General: Yes no acute distress Neurologic: Yes alert and Yes oriented x3 Psychologic: Yes reasonable and appropriate Right Wrist/Hand Skin/Wound: No Swelling and No Ecchymosis Left Wrist/Hand Skin/Wound: Yes CDI, Yes healed, No Swelling, No Ecchymosis, Yes nail intact, Yes capillary refill normal and No erythema Left Wrist: Yes ROM-Extension 0-60, Yes ROM-Flexion 0-80, Yes ROM-Pronation 0-80 and Yes ROM-Supination 0-90 Motor: EPL: 5, FDP-2: 5, 1st Dorsal Interosseous: 5 and APB: 5 Sensation: Radial: I, Ulnar: I and Median: I [facility] Medical History (Updated 05/05/24 @ 08:34 by Jenn Rutledge) CPAP (continuous positive airway pressure) dependence Wears glasses Arthritis Syncope Dietary restriction Chewing tobacco dependence Shortness of breath on exertion Leg cramps History of edema Bilateral carpal tunnel syndrome Costochondritis Type 2 diabetes mellitus Diabetes Pneumonia Hypertension Hyperlipemia Asthma Home Medications ?Medication ?Instructions ?Recorded ?Last Taken ?Type omega-3 fatty acids-fish oil 340 1 ea PO DAILY 12/29/17 12/29/17 History mg-1,000 mg capsule cpap supplies #1 ea 01/04/19 Unknown Rx atenolol 50 mg tablet 50 mg PO DAILY #90 tabs 04/22/22 Unknown Rx fenofibrate 54 mg tablet 54 mg PO DAILY #90 tabs 04/22/22 Unknown Rx hydrochlorothiazide 25 mg tablet 25 mg PO QDAY #90 tabs 04/22/22 Unknown Rx lisinopril 40 mg tablet 40 mg PO QDAY #90 tabs 04/22/22 Unknown Rx metformin 1,000 mg tablet 1,000 mg PO BID #180 tabs 04/22/22 Unknown Rx amlodipine 10 mg tablet 10 mg PO QDAY #90 tabs 08/20/22 Unknown Rx fluticasone furoate 100 1 inh inhalation QDAY 02/07/24 Unknown History mcg/actuation blister powder for inhalation (Arnuity Ellipta) tirzepatide 12.5 mg/0.5 mL 12.5 mg subcut FR 02/07/24 03/13/24 History subcutaneous pen injector (Jazzmine) Held on 05/05/24. Instructions: ON HOLD FOR SURGERY ON 05/19/24 albuterol sulfate 90 mcg/actuation 1 inh inhalation DAILY PRN PRN 03/16/24 Unknown History aerosol inhaler shortness of breath or wheezing pravastatin 40 mg tablet 40 mg PO QHS 03/16/24 Unknown History Allergy/AdvReac Type Severity Reaction Status Date / Time No Known Allergies Allergy Verified 05/08/24 09:17 Family History Father Diabetes Mother Diabetes COPD (chronic obstructive pulmonary disease) Surgical History (Updated 05/05/24 @ 08:25 by Jenn Rutledge) History of carpal tunnel surgery of left wrist Hx of colonoscopy Social History Smoking Status: Current every day smoker tobacco type: smokeless tobacco alcohol intake: never substance use type: does not use what type of physical activity do you participate in: none Vital Signs Vital Signs Vital Signs: Weight Weight: 295 lb
--- NOTE | 2024-05-19 08:19 | PRE.ANES_ITS ---
ASA Classification* ASA Classification ASA Classification: 3 Assessment & Plan Anesthesia* Anesthesia Assessment Anesthesia Assessment: Discussed sedation and/or anesthesia options, risks, benefits, and alternatives with patient/parents/legal guardian/POA. Questions invited. The patient/parents/legal guardian/POA seems to understand and agrees to proceed with anesthesia plan. Reviewed the physical assessment, medical history, allergy history and patient home medications list prior to surgery/procedure/anesthetic and documented any changes. Performed airway and anesthesia risk assessments. Anesthesia Type Anesthesia Type: MAC Anesthesia Focused Assessment* Airway Assessment Mouth opens: >3 cm Mallampati Score: II Focused Labs Anesthesia Preop lab: CBC WBC 6.6 K/mm3 (4.4-11.0) 09/02/23 09:10 09/02/23 RBC 4.75 M/mm3 (4.6-6.2) 09/02/23 09:10 09/02/23 Hgb 14.3 g/dL (13.0-16.5) 09/02/23 09:10 09/02/23 Hct 43.7 % (40-54) 09/02/23 09:10 09/02/23 Plt Count 276 K/mm3 (150-450) 09/02/23 09:10 09/02/23 CHEMISTRY Potassium 4.1 mmol/L (3.5-5.1) 09/02/23 09:10 09/02/23 Sodium 137 mmol/L (136-145) 09/02/23 09:10 09/02/23 BUN 17 mg/dL (7-18) 09/02/23 09:10 09/02/23 Creatinine 0.92 mg/dL (0.70-1.30) 09/02/23 09:10 09/02/23 Glucose 127 mg/dL (74-106) H 09/02/23 09:10 09/02/23 POC Glucose 172 mg/dL (74-106) H 03/22/24 10:22 03/22/24 TSH 1.15 uIU/mL (0.358-3.74) 09/02/23 09:10 COAG Pre-Assessment Diagnosis/Proposed Procedure Planned Operative Procedure(s): (R) Right Endoscopic Carpal Tunnel Release Anesthesia History 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 When Was Last Pacemaker Check QUESTION #4 FULL TEXT: You/Your Family Experience fever (hyperthermia) with Anesthesia Last Oral Intake Last Oral intake: Last Oral Intake NPO since Meds taken in AM with sips of water? 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 Female No 05/05/24 08:25 HX of Motion Sickness No 05/05/24 08:25 HX of N/V After Surgery No 05/05/24 08:25 Non-Smoker No 05/05/24 08:25 Duration of Surgery greater No 05/05/24 08:25 than 60 minutes Number of Risk Factors PONV Score Height & Weight Height & Weight: Anesthesia: Height & Weight Height 5 ft 8 in 05/18/24 11:12 Weight: 133.81 kg 05/18/24 11:12 Respiratory Assessment Respiratory Assessment - lawn and garden technician: Respiratory Tract Infection Hx - lawn and garden technician Hx Respiratory Tract Infection No 05/05/24 08:25 STOP Sleep Apnea STOP Sleep Apnea - lawn and garden technician: STOP Sleep Apnea - lawn and garden technician Hx Hypertension Yes: CONTROLLED WITH MED 05/05/24 08:25 Hx Sleep Apnea Yes 05/05/24 08:25 CPAP Yes 05/05/24 08:25 BIPAP No 05/05/24 08:25 Do you snore loudly (louder than talking or can be heard Do you often feel tired/ fatigued/ sleepy during daytime? Has anyone observed you stop breathing during sleep? STOP Results Positive 05/05/24 08:25 QUESTION #5 FULL TEXT : Do you snore loudly (louder than talking or can be heard through closed doors)? 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 Specify any problems Hx of Preganancy in last 3 N/A 05/05/24 08:25 Months Nurse Filling Out Transfusion MGRIFFITH 05/05/24 08:25 & Questions: Date: 05/05/24 05/05/24 08:25 Time: 08:05/05/24 08:25 Patient unable to answer at this time (ie. 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: /Reproductive Hx- lawn and garden technician Hx Now Gestational Age (in weeks): EDC: Hx Hx Para Hx Section SAB No 04/06/24 10:18 Active Medications Active Medications: Current Medications Generic Name Dose Route Start Last Admin Trade Name Freq PRN Reason Stop Dose Admin Cefazolin Sodium 3 gm/ N/A 30 mls @ 600 mls/hr 05/19/24 09:40 IV 05/19/24 09:42 PREOP [facility] Medical History CPAP (continuous positive airway pressure) dependence Wears glasses Arthritis Syncope Dietary restriction Chewing tobacco dependence Shortness of breath on exertion Leg cramps History of edema Bilateral carpal tunnel syndrome Costochondritis Type 2 diabetes mellitus Diabetes Pneumonia Hypertension Hyperlipemia Asthma Home Medications ?Medication ?Instructions ?Recorded ?Last Taken ?Type omega-3 fatty acids-fish oil 340 1 ea PO DAILY 8 12/29/17 History mg-1,000 mg capsule cpap supplies #1 ea 01/04/19 Unknown Rx atenolol 50 mg tablet 50 mg PO DAILY #90 tabs 04/05 11/25 Unknown Rx fenofibrate 54 mg tablet 54 mg PO DAILY #90 tabs 04/05 11/25 Unknown Rx hydrochlorothiazide 25 mg tablet 25 mg PO QDAY #90 tab s 04/22/22 Unknown Rx lisinopril 40 mg tablet 40 mg PO QDAY #90 tabs 04/22 Unknown Rx metformin 1,000 mg tablet 1,000 mg PO BID #180 tabs Unknown Rx amlodipine 10 mg tablet 10 mg PO QDAY #90 tabs 08/20 Unknown Rx fluticasone furoate 100 1 inh inhalation QDAY Unknown History mcg/actuation blister powder for inhalation (Arnuity Ellipta) tirzepatide 12.5 mg/0.5 mL 12.5 mg subcut FR 02/07/24 03/13/24 History subcutaneous pen injector (Mounjaro) Held on 05/05/24. Instructions: ON HOLD FOR SURGERY ON 05/19/24 albuterol sulfate 90 mcg/actuation 1 inh inhalation DA BRITTANY PRN PRN 03/16/24 Unknown History aerosol inhaler shortness of breath or wheez ing pravastatin 40 mg tablet 40 mg PO QHS 03/16/24 Unknow n History Allergy/AdvReac Type Severity Reaction Status Date / Time No Known Allergies Allergy Verified 05/08/24 09:17 Family History Father Diabetes Mother Diabetes COPD (chronic obstructive pulmonary disease) Surgical History History of carpal tunnel surgery of left wrist Hx of colonoscopy Social History Smoking Status: Current every day smoker tobacco type: smokeless tobacco alcohol intake: never substance use type: does not use what type of physical activity do you participate in: none Review of Systems (Anesthesia) ROS Narrative System reviewed and no additional complaints, except as documented.
[2024-05-19 09:15] LABS: Bedside Glucose 128 mg/dL (74-106)
[2024-05-19] MEDS: Cefazolin 3 GM in Syringe 1 EACH IV (09:43)
[2024-05-19] MEDS: Bupivacaine 0.25% 30 ML Vial (10:05)
--- NOTE | 2024-05-19 10:21 | OP.PCM_ITS ---
Problems Associated Problem List Diagnoses (1) Bilateral carpal tunnel syndrome: Procedures Musculoskeletal [id number]-29xxx: Other Procedure See Report Operative Report (Standard) Operative Information Date of Procedure: 05/19/24 Pre-Operative Diagnosis: R carpal tunnel syndrome Post-Operative Diagnosis: same Surgery/Procedure Performed: Right endoscopic carpal tunnel release public health educator: No Type of Anesthesia: Local MAC RN Documented Start/Stop Times: Operation Date: 05/19/24 09:40 Case Time Into Pre-Op 05/19/24 08:13 Out of Pre-Op 05/19/24 09:41 Anesthesia Start 05/19/24 09:43 Into Room 05/19/24 09:43 Procedure Start 05/19/24 10:03 Procedure End 05/19/24 10:18 Procedure Start Time: 10:03 Procedure Stop Time: 10:18 Select all DRAINS/GRAFTS/IMPLANTS that apply: None Estimated Blood Loss: 10 Specimen collected: No Description of surgery: Patient brought to the operating room theater. Placed upon on the table. 3g iv ancef before the start of the case. Local/MAC induced by the anesthetic team. Patient placed supine on the table all bony prominences padded. SCDs on the legs. Bed turned 90 degrees. Hand table used. Tourniquet applied properly padded to the right upper extremity. Upper extremity prepped and draped in the usual sterile fashion with chlorhexidine-based prep solution allowing over 3 minutes drying time prior to draping. Preoperative timeout performed to confirm the site patient and the surgery. Began by elevating the limb and inflated the tourniquet to 250 mmHg. I used the Arthex center line endoscopic carpal tunnel kit / technique. I made a transverse 2 cm incision in line with the? transverse wrist crease.? This was in line with the fourth digit.? I carried the dissection down through skin and subcutaneous tissue achieved meticulous hemostasis. Just ulnar to palmaris tendon.? I incised the antebrachial fascia.? I passed sequential dilators into the carpal tunnel along the radial border of the Guyon's canal aiming for the fourth digit with the hand in extension.? I used a synovial elevator to identify the transverse fibers of the transverse carpal tunnel ligament.? Passed the scope into the carpal tunnel. Once I had identified the full proximal and distal extent of the ligament I fully released the ligament under direct visualization by deploying the blade and slowly withdrawing the scope made sequential passes until I no longer felt tension as well as the entire extent of the ligament was released under direct visualization.? Sounded the tunnel with martinez tenotomy scissors, complete release, no bands. Arthroscope light was more visible through the skin. Release the forearm fascia also. Pictures taken and saved. Wounds thoroughly irrigated.? 4cc 0.25% bupivicaine for local anesthesia. Tourniquet let down prior to end of the case and meticulous hemostasis achieved.? Thorough irrigation.? ? Incisions closed with 3-0 vicryl and and 3-0 moncryl, dermabond for the skin. Then adaptic 4x4 gauze and roberta wrap loosely wrapped. Patient woken up,? transferred off the operating room table and taken to postanesthetic care unit in stable condition. All sponge needle instrument counts were correct no complications.?Plan for the patient to be discharged home according to day surgery criteria when they are comfortable. Follow-up in the office in 2 days time. Gentle ROM hand and elbow no heavy lifting. cpt 79346 Surgical Findings: as above Complications Complications: No Admit VTE Documentation VTE Present on Admission: No VTE Mechan Device Prophylaxis: SCD's VTE Pharm Prophylaxis ordered?: No Reason prophylaxis not ordered: Treatment Not Indicated
--- NOTE | 2024-05-19 10:24 | DCINST_ITS ---
Discharge Instructions Diet Discharge Diet: No restrictions Activity Ice area for (Minutes): 10 Lifting Restrictions: no lifting over 1 pound, no repetitive wrist rom Keep extremity elevated above heart level: Operative Extremity Dressing / Incision Call your doctor if your incision/area has: Continuous Slow Oozing, Sudden Increased Bleeding, Increased Pain/ Swelling, Increased Redness, Foul Smelling Discharge and Swelling at the incision site Call your doctor if you observe: Fever of 101 or Higher, Coldness, Increased Pain and Numbness or Tingling Remove Dressing in: leave in place till F/U Cleanse incision/area with: Do not get Incision Wet Follow Up Care Please Follow Up With: Lc Wilson MD When: within 2 weeks Test Results: Test results from this visit will be discussed in further detail at your follow- up appointment, if applicable. Discharge Plan Admission Attending Provider: Lc Wilson Primary Care Provider: Owen Gutierrez Instructions Print Language: Scottish Discharge Orders/Prescriptions Prescriptions: No Action atenolol 50 mg tablet 50 mg PO DAILY Qty: 90 3RF fenofibrate 54 mg tablet 54 mg PO DAILY Qty: 90 3RF hydrochlorothiazide 25 mg tablet 25 mg PO QDAY Qty: 90 3RF lisinopril 40 mg tablet 40 mg PO QDAY Qty: 90 3RF metformin 1,000 mg tablet 1,000 mg PO BID Qty: 180 3RF Arnuity Ellipta 100 mcg/actuation blister with device 1 inh inhalation QDAY Mounjaro 12.5 mg/0.5 mL pen injector 12.5 mg subcut FR omega-3 fatty acids-fish oil 1 EACH capsule 1 ea PO DAILY pravastatin 40 mg tablet 40 mg PO QHS albuterol sulfate 90 mcg/actuation HFA aerosol inhaler 1 inh inhalation DAILY PRN PRN (Reason: shortness of breath or wheezing) Rx Instructions: INHALE 2 PUFFS BY MOUTH EVERY 8 HOURS NEEDED FOR SHORTNESS OF BREATH FOR WHEEZING (DME) cpap supplies Qty: 1 0RF Rx Instructions: As directed amlodipine 10 mg tablet 10 mg PO QDAY Qty: 90 0RF Referrals / Follow Up: Lc Wilson MD [Med Staff - Active Staff] - Owen Gutierrez, [employer] [Primary Care Provider] - Disposition Disposition (needs filled in before D/C Order can be placed): Home, Self Care
--- NOTE | 2024-05-19 10:26 | PCM.POST.ANE ---
Anesthesia: Postop Eval I Current Vital Signs Temperature: 98.7 F Pulse Rate: 98 Blood Pressure: 120/76 Respiratory Rate: 18 Pulse Ox: 96 Assessment Airway patent: Yes Spontaneous unlabored respirations: Yes nausea: No Vomiting: No Anesthesia Complication: No Fluid Hydration Crystalloid volume administer (ml): 20 Total IV fluid infused: 20 Progress Note Anesthesia document: Postop Eval 1 completed: Yes
--- NOTE | 2024-05-19 11:27 | POSTOPAN2_ITS ---
Anesthesia Postop Eval I Sum Postop Eval Completion status Anesthesia document: Postop Eval 1 completed: Yes Anesthesia Postop Eval I Summary Anesthesia Postop Eval I Summary: Anesthesia Postop Eval I: Assessment Summary Airway patent Yes 05/19/24 10:26 DIRECTOR [email or web address] Spontaneous unlabored Yes 05/19/24 10:26 DIRECTOR [email or web address].CSIR respirations Mental status nausea No 05/19/24 10:26 DIRECTOR [email or web address].CSIR Vomiting No 05/19/24 10:26 DIRECTOR [email or web address].CSIR Anesthesia Postop Eval I: Fluid Summary Crystalloid volume administer 20 05/19/24 10:26 DIRECTOR [email or web address].CSIR (ml) Colloids volume administered ( ml) Blood Product volume administered (ml) Total IV fluid infused 20 05/19/24 10:26 DIRECTOR CHEMISTRY.CSIR Anesthesia Postop Eval I: Summary Notes Anesthesia Complication No 05/19/24 10:26 DIRECTOR CHEMISTRY.CSIR Anesthesia Complication Comment: Post-operative progress note Anesthesia: Postop Eval II Evaluation Mental status: Awake Pain Level: 0 nausea: No Vomiting: No
--- NOTE | 2024-05-19 11:27 | PCM.POSTANE2 ---
Anesthesia Postop Eval I Sum Postop Eval Completion status Anesthesia document: Postop Eval 1 completed: Yes Anesthesia Postop Eval I Summary Anesthesia Postop Eval I Summary: Anesthesia Postop Eval I: Assessment Summary Airway patent Yes 05/19/24 10:26 [email or web address] Spontaneous unlabored Yes 05/19/24 10:26 [employer]CSIR respirations Mental status nausea No 05/19/24 10:26 [employer]CSIR Vomiting No 05/19/24 10:26 [employer].CSIR Anesthesia Postop Eval I: Fluid Summary Crystalloid volume administer 20 05/19/24 10:26 [employer].CSIR (ml) Colloids volume administered ( ml) Blood Product volume administered (ml) Total IV fluid infused 20 05/19/24 10:26 [employer].CSIR Anesthesia Postop Eval I: Summary Notes Anesthesia Complication No 05/19/24 10:26 [employer].CSIR Anesthesia Complication Comment: Post-operative progress note Anesthesia: Postop Eval II Evaluation Mental status: Awake Pain Level: 0 nausea: No Vomiting: No
== END 2024-05-19 11:35 | disposition home or self-care (01) ==
LOC: SDC 08:05 → AC 08:07
PROVIDERS: PCP Nurse Practitioner Family; Referring Provider Orthopaedic Surgery Sports Medicine; Visit Provider Orthopaedic Surgery Sports Medicine
PROC: (CPT 29848; principal; 2024-05-19 09:25)
DX: G56.03 Carpal tunnel syndrome, bilateral upper limbs (principal); E11.9 Type 2 diabetes mellitus without complications; I10 Essential (primary) hypertension; E78.5 Hyperlipidemia, unspecified; J45.909 Unspecified asthma, uncomplicated; F17.220 Nicotine dependence, chewing tobacco, uncomplicated; Z79.84 Long term (current) use of oral hypoglycemic drugs; Z79.85 Long-term (current) use of injectable non-insulin antidiabetic drugs; Z79.899 Other long term (current) drug therapy
CPT/HCPCS: 29848; 01810; 82962; J2405